=== PATIENT | male | born 1960 | race Caucasian/White ===

== ENCOUNTER → 2017-08-25 15:28 | Outpatient (CLI) | payer OTHER, SELFPAY ==
[2016-08-15 14:08] VITALS: BMI 28.9
--- NOTE | 2017-08-25 16:00 | MRI_ITS ---
STUDY: MRI LUMBAR SPINE WITHOUT CONTRAST REASON FOR EXAM: Male, 57 years old. Low-back pain with radicular symptoms the left leg. Patient had previous surgery in July 2015. TECHNIQUE: Standardized fat and water weighted pulse sequences were obtained in the sagittal and axial planes. COMPARISON: MRI lumbar spine dated January 25, 2015. FINDINGS: T12-L1: Normal endplates. Normal disc height, signal and morphology. Normal bilateral facet joints. Normal central canal and bilateral lateral recesses. Normal bilateral intervertebral neural foramina. There is straightening of the normal lumbar lordosis. There is no substantial scoliosis. Normal conus medullaris that terminates at the L1 level. L1-2: There are irregular endplates. There is abnormal signal at the endplates that suggest sequela chronic Modic changes. There is annular disc bulge and osteophyte complex. Neural foramina are bilaterally narrowed without evidence for nerve impingement. There is mild central acquired canal stenosis. L2-3: There is narrowing of the disc with irregular endplates possibly related to multiple Schmorl's nodes. There is an annular disc bulge and posterior broad central disc protrusion. There is mild degenerative arthropathy of facet joints. Neural foramina are bilaterally narrowed without evidence for nerve impingement. There is no significant central acquired canal stenosis. L3-4: There is abnormal signal at the L4 vertebral body. This has appearance of acute Modic change or bone contusion. This appears to be associated with a Schmorl's node. This is larger than was apparent on the previous study. There is an annular disc bulge and osteophyte complex. There is mild degenerative arthropathy of facet joints. Neural foramina are bilaterally narrowed without evidence for nerve impingement. L4-5: There is an annular disc bulge and osteophyte complex. There is mild degenerative arthropathy of facet joints. There is no significant central acquired canal stenosis. No foramina are narrowed without evidence for nerve impingement. L5-S1: There is narrowing of the disc. There is anterolisthesis at this level with uncovering of the disc. Patient has had surgical fusion at this level with interpedicular screws. There is mild degenerative arthropathy of facet joints. Neural foramina are severely narrowed with probable impingement of bilateral L5 nerve roots at the neural foramina. There is no significant central acquired canal stenosis. Normal visualized sacral ala. Normal visualized paraspinous soft tissue structures. MRI/Spine Lumbar (Routine) IMPRESSION: 1. Moderately severe multilevel degenerative disc disease and degenerative arthropathy of the lumbar spine with acquired canal stenosis, neural foraminal narrowing and potential nerve impingement, as described. 2. Increasing abnormal signal within the L4 vertebral body apparently related to large Schmorl's node. This may be the result of acute discogenic change. 3. Postoperative changes at L5-S1 with persistent grade 1 anterolisthesis. Electronically Signed: Eda Bonilla MD at 19:56 EDT , Service support ,
== END ==
PROVIDERS: Family Provider Student in an Organized Health Care Education/Training Program; PCP Student in an Organized Health Care Education/Training Program
DX: M43.16 Spondylolisthesis, lumbar region (principal)
CPT/HCPCS: 72148

== ENCOUNTER → 2019-01-19 16:26 | Outpatient (CLI) | payer OTHER, SELFPAY ==
[2016-08-15 14:08] VITALS: BMI 28.9
--- NOTE | 2019-01-19 16:35 | MRI_ITS ---
STUDY: MRI LUMBAR SPINE WITHOUT CONTRAST REASON FOR EXAM: Male, 58 years old. Low back and left leg pain. TECHNIQUE: Standardized fat and water weighted pulse sequences were obtained in the sagittal and axial planes. COMPARISON: 08/25/2017 MRI lumbar spine. FINDINGS: No fracture or acute osseous abnormality. Alignment unchanged with grade 1, 3 mm anterolisthesis of L5 on S1. Diffuse disc desiccation with prominent endplate degenerative signal changes and irregularity throughout the lumbar spine particularly at L1-2, L2-3, and L3-4 with a large Schmorl's node in the superior endplate of L4, similar to prior. As before the conus terminates at the level of the mid L1 vertebral body with normal contour and signal. These thecal sac terminates at the mid S2 level. No acute finding in the paraspinal soft tissues. At L1-2, diffuse disc bulge and mild bilateral facet degeneration causes only mild narrowing, similar to prior. At L2-3, diffuse disc bulge and mild bilateral facet degeneration causes only mild narrowing. At L3-4, smaller diffuse disc bulge and moderate bilateral facet degeneration causes only mild narrowing, similar to prior. At L4-5, there is no significant disc bulge. Mild bilateral facet degeneration causes only mild narrowing. At L5-S1, the patient is status post posterior fusion. Mild chronic anterolisthesis of L5 on S1 with unroofing of the disc causes moderate to severe bilateral foraminal narrowing with flattening of the bilateral exiting L5 nerve roots. No significant spinal canal narrowing. This level is also similar to prior. MRI/Spine Lumbar (Routine) IMPRESSION: No significant change compared to 08/25/2017. Moderate to severe bilateral foraminal narrowing at L5-S1 secondary to grade 1 anterolisthesis and unroofing of the disc with mass effect upon the bilateral exiting L5 nerve roots in the foramina. Posterior fusion at this level. Prominent multilevel disc greater than facet degeneration but with no other evidence of nerve root impingement. Electronically Signed: Stuart Welch, at 19:41 EDT Tel , Service support ,
== END ==
PROVIDERS: Family Provider Student in an Organized Health Care Education/Training Program; PCP Student in an Organized Health Care Education/Training Program; Referring Provider Anesthesiology Pain Medicine; Visit Provider Anesthesiology Pain Medicine
DX: M54.9 Dorsalgia, unspecified (principal)
CPT/HCPCS: 72148

== ENCOUNTER 2019-03-07 15:47 | Outpatient (RCR) | payer OTHER, SELFPAY ==
[2016-08-15 14:08] VITALS: BMI 28.9
--- NOTE | 2019-03-09 10:43 | HP.OTFCE_ITS ---
HP OT Functional Capacity Eval Date of Evaluation: 03/07/19 - Task Lift Floor (Occasional 1-33% of Day): 75 Floor (Frequent 34-66% of Day): 38 Floor (Constant 67-100% of Day): 15 Floor PDL: Medium-Heavy Knee (Occasional 1-33% of Day): 50 Knee (Frequent 34-66% of Day): 25 Knee (Constant 67-100% of Day): 10 Knee PDL: Medium Waist (Occasional 1-33% of Day): 45 Waist (Frequent 34-66% of Day): 22 Waist (Constant 67-100% of Day): 9 Waist PDL: Medium Shoulder (Occasional 1-33% of Day): 45 Shoulder (Frequent 34-66% of Day): 22 Shoulder (Constant 67-100% of Day): 9 Shoulder PDL: Medium Overhead (Occasional 1-33% of Day): 25 Overhead (Frequent 34-66% of Day): 12 Overhead (Constant 67-100% of Day): na Overhead PDL: Light - Work Activity/Posture Bending: Frequent Ability (34-66% of day) Comments: low freqent ability Squatting: Occasional Ability (1-33% of day) Kneeling: Frequent Ability (34-66% of day) Comments: with external support Reaching out: Frequent Ability (34-66% of day) Reaching up: Frequent Ability (34-66% of day) Sitting: Frequent Ability (34-66% of day) Walking: Frequent Ability (34-66% of day) Comments: low frequent ability Standing: Frequent Ability (34-66% of day) Comments: while shifting weight on low frequent ability - Reference Duration Sedentary Sedentary Light Light Light Medium Medium Medium Heavy Very Heavy Heavy Occasional (0-33% of day) Frequent (34-66% of day) Constant (67-100% of day) 10 # Negligible Negligible 15 # 8 # Negligible 20 # 10# Negli. 35 # 18 # 7 # 50 # 25 # 10 # 75 # 100 # >100 # 38 # 50 # >50 # 15 # 20 # >20 # - Patient Information Height: 1.75 m Weight:: 93.894 kg Hand Dominance: right - Medical History Medical History Including Restrictions: This 58-year-old male was seen for FCE. Pt states he was in good health until 2008 pt began having back pain. Pt states he did have 2016 fusion for L5-S1 pt states he removed well from this sx. Pt states he started to have pain in 2017. pt has been doing injections and states they are 70% affective. pt states he is working with from [facility] [place] to see for sx options. Pt states he does not exercise on a regular basis. - Diagnoses Diagnoses: HTN dx in 2006. DMII dx in 2005. fx vertebra. Back pain. suffered Heart attack 2017 stent placed - Symptoms Symptoms: Pt states he has sharp left sided low back pain. left leg pain. left buttock pain - Pain Pain: Pt states he is 9/10 pain but arrives following work day for assessment. pt arrives following work has not taken any medication today for his back. states he pain medicine at night - pt states he takes Percocet, gabapentin - Work History Work History: Pt is employed at [employer] for 10 years. Pt states he is standing for 8 hour shifts and is required to lift 2#-70#. 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 Pt states once his part is smooth, he places it on a skid. 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 - Behavioral Behavioral: Pt was cooperative during the assessment. - ADLS ADLS: Pt states he lives with his in a one-story home with no entry steps. pt has ramp entrance. Pt states there is a basement to get tools. Tub shower c ombo- pt states he is independent with shower and dressing. Pt does state his help with his socks at times but not often. Pt drives ind. Pt states he does light cooking, laundry. pt states his does the yard work and most of the shopping. - Physical Examination ROM: Pt does not demo limited ROM at this time. Strength: pt demo with left hip flex at 4/5. quads 4/5. hip adduction/abduction 5/5. UB 5/5 Right Cell Tender Helper Strength Average: 83.33 Right Cell Tender Helper Strength Percentile: 26% Left Cell Tender Helper Strength Average: 105.00 Left Cell Tender Helper Strength Percentile: 80% Right Lateral Pinch Average: 20.00 Right Lateral Pinch Percentile: 50% Left Lateral Pinch Average: 21.33 Left Lateral Pinch Percentile: 75% Right Tripod Pinch Average: 22.00 Right Tripod Pinch Percentile: 90% Left Tripod Pinch Average: 22.66 Left Tripod Pinch Percentile: >90% Sensation: Denies Fine Motor: Denies Balance: no loss of balance noted during the assessment - Non Material Handling Activities Bending: Pt demo the ability to bend forward three times, ten times and ten times and 8 times rapidly- pt reports sharp pain in low back-8/10 pt was holding his breath during task. pt can bend forward on a low frequent ability. Pain limiting factor Squatting: pt demo the ability to squat three times and ten times and ten times rapidly pt in limited squat level ability with use of external support. pt reports pain 8/10 pt can squat on a occasional ability. Kneeling: Pt demo the ability to kneel three times on right knee and then on left knee. ten times on left knee and ten times rapidly- Pt leaned heavily on table top for support. pt reports pain in left back/hip 8/10. pt did complain of right quad cramping. pt can kneel on a frequent ability with external support. Reaching out/up: Pt demo reaching out/up three times, ten times and ten times rapidly while standing pt can reach out/up on Frequent ability. Walking: Pt demo a reciprocal antalgic gait patter for 15 min pt report back pain 9/10 following- he sat for 3 min rocking back and forth to decrease his pain. pt can ambulate on a low frequent ability. Standing: pt demo the ability to stand for 4 min and began shifting weight. pt demo standing for 8 min while shifting weight.pt can stand on a low frequent ability. Sitting: Pt demo the ability to sit for 30 min with shifting body weight. Pt reports pain is 8/10. pt can sit on a frequent ability with shifting weight. Pt indicated on functional activity questionnaire that he can sit in a car for one hour before needing to get out and stretch. Climbing Stairs: pt demo the ability to ascend ten steps with reciprocal step pattern and use of bilateral UE on hand rails. Pt descended ten steps with a right step-down pattern leaning heavily on right side. - Dynamic Occasional Lifting Capacity Floor Lift: pt demo the ability to lift 75# maximally and 45# comfortably from this level. Knee Lift: pt demo the ability to lift 50# maximally and 35# comfortably from this level. Waist Lift: pt demo the ability to lift 45# maximally and 25# comfortably from this level. Shoulder Lift: pt demo the ability to lift 45# maximally and 25# comfortably from this level. Overhead Lift: pt demo the ability to lift 25# maximally and 10# comfortably from this level. Carrying: Pt demo the ability to carry 45# for 30 feet with good ability. Comments: Pts pain and muscle cramp was limiting factor with his ability during this assessment. Pts pain ranged from 6-8/10.
== END 2019-03-07 19:00 | disposition home or self-care (01) ==
LOC: OT 15:47
PROVIDERS: Family Provider Student in an Organized Health Care Education/Training Program; PCP Student in an Organized Health Care Education/Training Program; Referring Provider Anesthesiology Pain Medicine; Visit Provider Anesthesiology Pain Medicine
DX: M54.9 Dorsalgia, unspecified (principal); M79.606 Pain in leg, unspecified
CPT/HCPCS: 97750

== ENCOUNTER → 2020-06-29 11:03 | Outpatient (CLI) | payer OTHER, SELFPAY ==
[2016-08-15 14:08] VITALS: BMI 28.9
--- NOTE | 2020-06-29 11:07 | VDLE_ITS ---
Reason For Study: LLE swelling RIGHT LEFT CFV is compressible, spontaneous, phasic, GSV is normal. competent and demonstrates normal CFV is compressible, spontaneous, phasic, augmentation. competent, and demonstrates normal Procedure augmentation. This is a venous duplex using B-mode, color FV is compressible, spontaneous, phasic, flow and spectral Doppler. competent and demonstrates normal Exam performed in department. augmentation. The exam was diagnostic. POP V is compressible, spontaneous, phasic, A preliminary report was called and/or faxed competent and demonstrates normal to Cathie Scott FASTENER SEWING MACHINE OPERATOR @ [phone] @ augmentation. 11:30 am. T/P Trunk is compressible. PTV is compressible. LT PerV is compressible. Non-vascular structure noted in LT pop fossa area measuring 1.27 x 1.21 cm. Interpretation Summary Deep veins of the left lower extremity are patent and compressible segmentally. There is no evidence of left lower extremity deep vein thrombosis. Valvular competence appears intact within the proximal deep venous system on the left . The left great saphenous vein appears patent and compressible segmentally. A non-vascular, hypoechoic structure is noted in the left popliteal space, measuring 1.27 cm x 1.21 cm. This probably represents a popliteal cyst. Clinical correlation is advised. Ordering Physician: Wendy Scott Referring Physician: Bradley Hills Performed By: Tyra Jeffery, ELEONORACS, RVT
== END ==
LOC: CVS 11:06
PROVIDERS: PCP Student in an Organized Health Care Education/Training Program; Referring Provider Nurse Practitioner Family; Visit Provider Nurse Practitioner Family
DX: M79.89 Other specified soft tissue disorders (principal)
CPT/HCPCS: 93971

== ENCOUNTER 2022-05-13 11:56 | Emergency (ER) | payer BC, SELFPAY ==
[2016-08-15 14:08] VITALS: BMI 28.9
[2022-05-13 11:57] VITALS: BP 163/93; PULSE 84; RESP 16; TEMP 36.4; O2SAT 99; BMI 31.0
--- NOTE | 2022-05-13 12:41 | EX.ED.DYSGE1 ---
HPI History of Present Illness Chief Complaint: Fatigue Informant: patient and spouse/S.O. Narrative Narrative: Patient started with nausea and vomiting and malaise on Thursday. He had just gotten his flu shot on Thursday and felt fine then. Symptoms continued through Thursday. Yesterday and today he is not vomiting anymore but his appetite is still poor. He still feels just dry and weak. He had some abdominal cramping earlier but he has none now. No urinary symptoms. He has no cough or trouble breathing. He had a little bit of nasal drainage. No significant myalgias but some mild soreness. Of note patient is diabetic. [facility] Medical History (Updated 05/13/22 @ 15:[address] Regan Dillon MD) Atherosclerosis of coronary artery of [place] without angina pectoris Diabetes Dyslipidemia Hypertension Non-STEMI (non-ST elevated myocardial infarction) Home Medications insulin glargine 100 unit/mL subcutaneous solution 40 unit SQ QHS DM 02/11/15 [History Last Taken 08/13/16] lisinopril 5 mg tablet 5 mg PO DAILY BP 02/11/15 [History Last Taken 08/14/16] glimepiride 4 mg tablet 4 mg PO DAILY DM 08/14/16 [History Last Taken 08/14/16] metformin 1,000 mg tablet 1,000 mg PO BIDCM 08/14/16 [History Last Taken 08/14/16] atenolol 50 mg-chlorthalidone 25 mg tablet 1 tab PO DAILY BP #30 tabs 08/20/17 [Rx Last Taken Unknown] atorvastatin 40 mg tablet 40 mg PO QHS #30 tabs 08/20/17 [Rx Last Taken Unknown] clopidogrel 75 mg tablet 75 mg PO DAILY #30 tabs 08/20/17 [Rx Last Taken Unknown] gabapentin 300 mg capsule 300 mg PO TID 08/20/17 [History Last Taken Unknown] oxycodone-acetaminophen 5 mg-325 mg tablet (Percocet) 1 tab PO Q4H PRN 08/20/17 [History Last Taken Unknown] empagliflozin 10 mg tablet (Jardiance) mg 05/13/22 [History Last Taken Unknown] furosemide 20 mg tablet mg 05/13/22 [History Last Taken Unknown] ondansetron 4 mg disintegrating tablet 4 mg PO Q8H PRN nausea and vomiting #10 tabs 05/13/22 [Rx Last Taken Unknown] potassium chloride 10 mEq tablet,extended release meq PO 05/13/22 [History Last Taken Unknown] Allergy/AdvReac Type Severity Reaction Status Date / Time exenatide [From [place]] AdvReac Other Verified 05/13/22 12:13 Family History Father CAD (coronary artery disease) Mother CAD (coronary artery disease) Surgical History H/O left knee surgery History of appendectomy History of coronary artery stent placement (~08/15/16) Previous back surgery (~07/25/14) Social History Smoking Status: Never smoker ROS ROS ED Constitutional Constitutional ED: Denies chills, fever(s) or subjective Eyes Eyes: Denies change in vision ENT ENT ED: Reports rhinorrhea; Denies ear pain or sore throat Cardiovascular Cardiovascular: Denies chest pain or palpitations Respiratory/Chest Respiratory/Chest: Denies cough or dyspnea Gastrointestinal Gastrointestinal: Reports nausea and vomiting Genitourinary Genitourinary ED: Denies dysuria, hematuria or urinary frequency Musculoskeletal Musculoskeletal: Reports myalgias; Denies arthralgias, back pain or neck pain Integumentary Denies Abrasions Neurologic Neurologic: Denies weakness Endocrine Endocrinology: Denies polydipsia or polyuria Hematologic/Lymphatic Hematologic/Lymphatic: Denies easy bleeding or easy bruising Allergic/Immunologic Allergic/Immunologic ED: Denies urticaria EXAM Physical Exam Const Vital Signs: 05/13/22 11:57 05/13/22 14:10 Temperature 97.6 F L Temperature Source Temporal Pulse Rate 84 74 Respiratory Rate 16 16 Blood Pressure 163/93 H Blood Pressure Mean 116 Pulse Ox 99 99 Oxygen Delivery Method Room Air Positive well nourished and well developed Constitutional Narrative: Patient awake alert and appropriate. He does not look in distress but he does look like he does not feel too well. General Appearance ED: well developed and NAD; Negative for pallor HEENT Reports dry mucous membranes HEENT Narrative: Mildly dry mucous membranes. Mouth ED: Yes dry mucous membranes Mouth: dry mucous membranes Eyes General Eye ED: Negative for scleral icterus Neck supple Chest Wall inspection of chest normal Resp normal respiratory effort and clear to auscultation bilaterally Auscultation: Negative for rales, rhonchi or wheezes Cardio regular rate, regular rhythm and no murmurs GI normal to inspection, nondistended, normoactive bowel sounds, non-tender, non-distended and no masses Palpation: soft; Negative for tender or guarding Back/Spine no CVA tenderness Extremity normal to inspection General Extremety ED: Negative for edema or tenderness General Extremity: Negative for edema Psych mental status grossly normal Skin no rashes or lesions noted General Skin Exam: Negative for pallor MDM MDM MDM Narrative Medical decision making narrative: Patient CBC shows no acute process. Electrolytes do show a mild bump in his creatinine and BUN over his baseline. BUN to creatinine ratio is also high consistent with some dehydration. Patient is feeling better after IV fluids and Zofran. I think patient can go home. His vomiting actually stopped yesterday and today. He was still feeling a bit weak. Influenza's are negative. We will send him home with Zofran. We discussed reasons to return. Abdomen is still benign on repeat exam. Lab Data Attestation: I reviewed the patient's lab results. Labs: Laboratory Results - last 24 hr 05/13/22 05/13/22 13:00 13:00 WBC 8.6 RBC 5.91 Hgb 16.3 Hct 51.1 MCV 86.5 MCH 27.6 MCHC 31.9 L RDW Std Deviation 42.9 RDW Coeff of [place] 13.5 Plt Count 241 MPV 10.8 Immature Gran % (Auto) 0.400 Neut % (Auto) 75.6 H Lymph % (Auto) 12.0 L [place] % (Auto) 7.5 Eos % (Auto) 3.6 Baso % (Auto) 0.9 Absolute Neuts (auto) 6.5 Absolute Lymphs (auto) 1.03 Nucleated RBC % 0 Sodium 135 L Potassium 4.4 Chloride 101 Carbon Dioxide 24.0 Anion Gap 10 BUN 35 H Creatinine 1.27 Estim Creat Clear Calc 61.85 Est GFR (MDRD) Af Amer 74 Est GFR (MDRD) Non-Af 61 BUN/Creatinine Ratio 27.6 H Glucose 206 H Calcium 9.1 Discharge Plan Triage Chief Complaint: Fatigue ED Provider: Regan Dillon Dx/Rx/DC Orders Clinical Impression: Acute dehydration, Nausea & vomiting, Acute viral syndrome Instructions: Dehydration, ED Diet Vomiting Diarrhea Prescriptions: New ondansetron 4 mg tablet,disintegrating 4 mg PO Q8H PRN (Reason: nausea and vomiting) Qty: 10 0RF No Action atorvastatin 40 MG tablet 40 mg PO QHS Qty: 30 11RF clopidogrel 75 MG tablet 75 mg PO DAILY Qty: 30 11RF atenolol-chlorthalidone 1 EACH tablet 1 tab PO DAILY Qty: 30 11RF gabapentin 300 mg capsule 300 mg PO TID oxycodone-acetaminophen [Percocet] 5-325 mg tablet 1 tab PO Q4H PRN insulin glargine 100 UNIT/ML solution 40 unit SQ QHS Label Comments: diabetes lisinopril 5 MG tablet 5 mg PO DAILY Label Comments: blood pressure glimepiride 4 MG tablet 4 mg PO DAILY metformin 1,000 MG tablet 1,000 mg PO BIDCM potassium chloride 10 mEq tablet extended release PO furosemide 20 mg tablet Jardiance 10 mg tablet Primary Care Provider: Bradley Hills Referrals: Bradley Hills, DO [Primary Care Provider] - 3-5 Days if not improving Disposition Disposition: Home, Self Care
[2022-05-13] MEDS: Ondansetron 4 MG/2 ML Vial IV (13:04)
[2022-05-13] MEDS: 0.9% Normal Saline 1,000 ML 1000 ML IV (13:05)
[2022-05-13 13:08] LABS: Absolute Lymphocyte Count 1.03 X10^3/uL (0.83-4.51); Absolute Neutrophil Count 6.5 X10^3/uL (2.0-7.7); Basophil# 0.08 X10^3/uL; Basophil% 0.9 % (0-1); Eosinophil# 0.31 X10^3/uL; Eosinophils% 3.6 % (0-5); Hematocrit 51.1 % (40-54); Hemoglobin 16.3 g/dL (13.0-16.5); Lymphocyte # 1.03 X10^3/ul (0.83-4.51); Mean Corp Hgb Conc 31.9 g/dL (32-36); Mean Corpuscular Hgb 27.6 pg (27.0-32.0); Mean Corpuscular Volume 86.5 fL (80-94); Mean Platelet Vol. 10.8 fl (6.2-12.0); Monocyte# 0.64 X10^3/uL; Monocyte% 7.5 % (0-10); NRBC Flagged by Analyzer 0 % (0-5); Neutrophil # 6.47 X10^3/uL (2.7-7.7); Neutrophil % 75.6 % (47-70); Platelet Count 241 K/mm3 (150-450); RBC Distribution Width CV 13.5 % (11.6-14.6); RBC Distribution Width SD 42.9 fl (35.1-43.9); Red Blood Count 5.91 M/mm3 (4.6-6.2); White Blood Count 8.6 K/mm3 (4.4-11.0)
[2022-05-13 13:21] LABS: Anion Gap 10 (5-15); BUN 35 mg/dL (7-18); BUN/Creat Ratio 27.6 RATIO (10-20); Calcium,Total 9.1 mg/dL (8.5-10.1); Chloride 101 mmol/L (98-107); Creatinine, Serum 1.27 mg/dL (0.70-1.30); EST Glomerular Filtration Rate 61 mL/min (>60); Est Glom Filt Rate - Afr Amer 74 mL/min (>60); Estimated Creatinine Clearance 61.85 ml/min; Glucose 206 mg/dL (74-106); Potassium 4.4 mmol/L (3.5-5.1); Sodium Level 135 mmol/L (136-145)
[2022-05-13 14:10] VITALS: PULSE 74; RESP 16; O2SAT 99
== END 2022-05-13 15:21 | disposition home or self-care (01) ==
PROVIDERS: Emergency Provider Emergency Medicine; PCP Student in an Organized Health Care Education/Training Program; Visit Provider Emergency Medicine
DX: E86.0 Dehydration (principal); R11.2 Nausea with vomiting, unspecified; B34.9 Viral infection, unspecified; I25.10 Atherosclerotic heart disease of native coronary artery without angina pectoris; I25.2 Old myocardial infarction
CPT/HCPCS: 80048; 85025; 87804; 96361; 96374; 99283; J7030; J2405

== ENCOUNTER 2023-09-10 13:08 | Observation (INO) | payer BC, SELFPAY ==
[2016-08-15 14:08] VITALS: BMI 28.9
[2023-09-10 13:09] VITALS: BP 153/84; PULSE 99; RESP 18; TEMP 36; O2SAT 98; BMI 31.8
[2023-09-10 13:40] LABS: Absolute Lymphocyte Count 0.62 X10^3/uL (0.83-4.51); Absolute Neutrophil Count 10.1 X10^3/uL (2.0-7.7); Basophil# 0.05 X10^3/uL; Basophil% 0.4 % (0-1); Eosinophil# 0.04 X10^3/uL; Eosinophils% 0.4 % (0-5); Hematocrit 43.6 % (40-54); Hemoglobin 13.8 g/dL (13.0-16.5); Lymphocyte # 0.62 X10^3/ul (0.83-4.51); Lymphocyte % 5.5 % (19-41); Mean Corp Hgb Conc 31.7 g/dL (32-36); Mean Corpuscular Hgb 27.3 pg (27.0-32.0); Mean Corpuscular Volume 86.2 fL (80-94); Mean Platelet Vol. 9.5 fl (6.2-12.0); Monocyte# 0.48 X10^3/uL; Monocyte% 4.2 % (0-10); NRBC Flagged by Analyzer 0 % (0-5); Neutrophil # 10.11 X10^3/uL (2.7-7.7); Neutrophil % 89.1 % (47-70); Platelet Count 479 K/mm3 (150-450); RBC Distribution Width CV 14.6 % (11.6-14.6); RBC Distribution Width SD 45.9 fl (35.1-43.9); Red Blood Count 5.06 M/mm3 (4.6-6.2); White Blood Count 11.4 K/mm3 (4.4-11.0)
[2023-09-10] MEDS: Ondansetron 4 MG/2 ML Vial IV ×2 (13:46→17:21)
[2023-09-10] MEDS: 0.9% Normal Saline (1000mL) 1,000 ML 1000 ML IV ×2 (13:46→15:19)
[2023-09-10] MEDS: Morphine 4 MG/ML Syringe IV (13:47)
[2023-09-10 14:01] LABS: ALB/GLOB Ratio 0.8 RATIO (0.9-2.4); AST(SGOT) 34 U/L (15-37); Alanine Aminotransfer ALT/SGPT 60 U/L (16-61); Albumin, Serum 3.8 g/dL (3.2-5.0); Alkaline Phosphatase 143 U/L (45-117); Anion Gap 15 (5-15); BUN 27 mg/dL (7-18); BUN/Creat Ratio 23.5 RATIO (10-20); Calcium,Total 9.7 mg/dL (8.5-10.1); Chloride 103 mmol/L (98-107); Creatinine, Serum 1.15 mg/dL (0.70-1.30); EST Glomerular Filtration Rate 69 mL/min (>60); Est Glom Filt Rate - Afr Amer 83 mL/min (>60); Estimated Creatinine Clearance 76.81 ml/min; Glucose 210 mg/dL (74-106); Lipase 25 U/L (13-75); Potassium 4.6 mmol/L (3.5-5.1); Protein, Total 8.8 g/dL (6.4-8.2); Sodium Level 135 mmol/L (136-145)
--- NOTE | 2023-09-10 14:17 | EDS_ITS ---
HPI HPI - GI History of Present Illness Chief Complaint: Nausea/Vomiting Informant: patient Abdominal Pain/Flank Pain Onset: Yesterday Context: Gradual Onset Timing: Continuous Quality: Cramping Location: Diffuse Worsened by: Nothing Relieved by: - (Vomiting) Nausea/Vomiting/Emesis GI Symptom: Positive for Nausea and Vomiting Onset: Yesterday Quality: Positive for Nonbilious; Negative for Blood streaks, Coffee ground or Hematemesis Diarrhea/Melena/Hematochezia GI Symptom: Negative for Diarrhea or Melena Associated Symptoms Associated Symptoms: Negative for Dysuria, Frequency or Hematuria Narrative Narrative: Patient presents with abdominal pain that began yesterday. Patient states it has gradually gotten worse. Patient states it has been intermittent. Patient describes it as cramping. Patient states it is diffuse across his abdomen. P atient states it gets better after he vomits. Patient states he has been having several episodes of nausea and vomiting. Patient denies any hematemesis or coffee-ground emesis. Patient denies any diarrhea, melena, or hematochezia. Patient denies any dysuria, frequency, or hematuria. Patient denies any fevers or chills. [facility] Medical History Atherosclerosis of coronary artery of [place] heart without angina pectoris Diabetes Dyslipidemia Hypertension Non-STEMI (non-ST elevated myocardial infarction) Home Medications insulin glargine 100 unit/mL subcutaneous solution 68 unit subcut QHS DIABETES 02/11/15 [History Last Taken 09/08/23] lisinopril 5 mg tablet 5 mg PO DAILY BP 02/11/15 [History Last Taken 09/10/23] clopidogrel 75 mg tablet 75 mg PO DAILY #30 tabs 08/20/17 [Rx Last Taken 09/10/23] gabapentin 300 mg capsule 300 mg PO TID 08/20/17 [History Last Taken 09/10/23] oxycodone-acetaminophen 5 mg-325 mg tablet (Percocet) 1 - 2 tab PO Q4H PRN pain 08/20/17 [History Last Taken 09/10/23] furosemide 20 mg tablet 20 mg PO BID PRN LEG SWELLING 05/13/22 [History Last Taken 09/10/23] ondansetron 4 mg disintegrating tablet 4 mg PO Q8H PRN nausea and vomiting #10 tabs 05/13/22 [Rx Last Taken 09/10/23] potassium chloride 10 mEq tablet,extended release 20 meq PO DAILY 05/13/22 [History Last Taken 09/10/23] ascorbic acid (vitamin C) 500 mg tablet 1 g PO BID 09/10/23 [History Last Taken 09/10/23] aspirin 81 mg chewable tablet (Aspirin Childrens) 81 mg PO BID 09/10/23 [History Last Taken 09/10/23] atenolol 50 mg tablet 50 mg PO DAILY 09/10/23 [History Last Taken 09/10/23] empagliflozin 25 mg tablet (Jardiance) 25 mg PO DAILY DIABETES 09/10/23 [History Last Taken 09/10/23] melatonin 10 mg tablet 60 mg PO QHS SLEEP 09/10/23 [History Last Taken 09/08/23] metformin 500 mg tablet 1,000 mg PO BIDCM DIABETES 09/10/23 [History Last Taken 09/10/23] simvastatin 40 mg tablet 40 mg PO QHS 09/10/23 [History Last Taken 09/09/23] triamcinolone acetonide 0.5 % topical cream 1 applic topical BID PRN RASH/IT KAIDEN 09/10/23 [History Last Taken Unknown] Allergy/AdvReac Type Severity Reaction Status Date / Time exenatide [From [place]] AdvReac Other Verified 09/10/23 13:09 Family History Father CAD (coronary artery disease) Mother CAD (coronary artery disease) Surgical History H/O left knee surgery History of appendectomy History of coronary artery stent placement (~08/15/16) Previous back surgery (~07/25/14) Social History Smoking Status: Never smoker ROS ROS ED Constitutional Constitutional ED: Denies chills or fever(s) Eyes Eyes: Denies blurry vision or change in vision ENT ENT ED: Denies rhinorrhea or sore throat Cardiovascular Cardiovascular: Denies chest pain or palpitations Respiratory/Chest Respiratory/Chest: Denies cough or dyspnea Gastrointestinal Gastrointestinal: Reports abdominal pain, nausea and vomiting; Denies diarrhea or melena Genitourinary Genitourinary ED: Denies dysuria or hematuria Musculoskeletal Musculoskeletal: Denies back pain or neck pain Integumentary Reports rash; Denies abscess Neurologic Neurologic: Denies headache(s) or weakness Allergic/Immunologic Allergic/Immunologic ED: Denies mouth swelling or urticaria EXAM Physical Exam Const Vital Signs: 09/10/23 13:09 09/10/23 15:08 09/10/23 17:00 Temperature 96.8 F L Temperature Source Temporal Pulse Rate 99 78 89 Respiratory Rate 18 16 16 Blood Pressure 153/84 H 172/76 H 181/76 H Blood Pressure Mean 107 108 111 Pulse Ox 98 98 96 Oxygen Delivery Method Room Air Room Air Room Air 09/10/23 17:23 Temperature 97.6 F L Temperature Source Pulse Rate 106 H Respiratory Rate 16 Blood Pressure 181/76 H Blood Pressure Mean 111 Pulse Ox 96 Oxygen Delivery Method Positive well nourished and well developed General Appearance ED: well developed and NAD HEENT Reports moist mucous membranes Neck supple and no JVD Resp normal respiratory effort and clear to auscultation bilaterally Cardio regular rate and regular rhythm GI non-distended Palpation: soft and tender epigastric, LLQ, RLQ, LUQ, RUQ, periumbilical and suprapubic; Negative for guarding or rebound tenderness present Neuro CN's II-XII intact bilaterally, moves all extremities and no sensory deficits noted Sensorium / Orientation: alert Motor Exam: strength 5/5 throughout Psych mental status grossly normal MDM MDM MDM Narrative Medical decision making narrative: Differential diagnosis includes gastritis, pancreatitis, cholecystitis, cholelithiasis, gastroenteritis, dehydration, and electrolyte abnormality. CBC will be obtained to assess for leukocytosis and anemia. Comprehensive metabolic profile will be obtained to assess for hepatic function, renal function, and electrolyte abnormality. Lipase will be obtained to assess for pancreatitis. Lab Data Attestation: I reviewed the patient's lab results. Lab results narrative: CBC was reviewed. There is a slight leukocytosis of 11.4. The remainder is within normal limits. Comprehensive metabolic profile was reviewed. Glucose was slightly elevated at 210. CO2 was slightly low at 17 and anion gap was 15. Lipase was reviewed and was normal at 25. Serum acetone was reviewed and was moderate. Venous blood gas was reviewed. pH was 7.32, pCO2 was 29.7, pO2 was 41.9, bicarb was 15.4, and O2 saturation was 74.5%. Labs: Laboratory Results - last 24 hr 09/10/23 09/10/23 13:32 15:15 WBC 11.4 H RBC 5.06 Hgb 13.8 Hct 43.6 MCV 86.2 MCH 27.3 MCHC 31.7 L RDW Std Deviation 45.9 H RDW Coeff of [place] 14.6 Plt Count 479 H MPV 9.5 Immature Gran % (Auto) 0.400 Neut % (Auto) 89.1 H Lymph % (Auto) 5.5 L [place] % (Auto) 4.2 Eos % (Auto) 0.4 Baso % (Auto) 0.4 Absolute Neuts (auto) 10.1 H Absolute Lymphs (auto) 0.62 L Nucleated RBC % 0 Sodium 135 L Potassium 4.6 Chloride 103 Carbon Dioxide 17.0 L Anion Gap 15 BUN 27 H Creatinine 1.15 Estim Creat Clear Calc 76.81 Est GFR (MDRD) Af Amer 83 Est GFR (MDRD) Non-Af 69 BUN/Creatinine Ratio 23.5 H Glucose 210 H Calcium 9.7 Total Bilirubin 0.90 AST 34 ALT 60 Alkaline Phosphatase 143 H Total Protein 8.8 H Albumin 3.8 Globulin 5.0 H Albumin/Globulin Ratio 0.8 L Lipase 25 Acetone Level MODERATE H ABG Data ABG results: ABG 09/10/23 16:22 Specimen Type NAV Sample Site Not entered VBG pH 7.32 VBG pO2 42 H VBG HCO3 15 L VBG Total CO2 16 L VBG O2 Sat (Calc) 75 H VBG Base Excess -11 L POC Mix VBG pCO2 Pt Tmp 29.7 L O2 Delivery Device Not entered Additional Tests and Interventions Additional Tests or Interventions: Because of the low CO2 and borderline anion gap, serum acetone was obtained. Treatment and Re-Evaluation :: Patient was given IV fluids, morphine, and Zofran. Patient states he was starting to feel better on reevaluation. Patient was advised of his findings. Patient was advised of the need for hospitalization. Patient was agreeable with this. Case was discussed with the hospitalist. He will come in and evaluate the patient. He will determine the disposition at that time. Hospitalist evaluated the patient and will admit the patient to general medical floor for gastroenteritis. Discharge Plan Dx/Rx/DC Orders Clinical Impression: Diabetic ketoacidosis, Nausea and vomiting Disposition Disposition: Acute Care Hospital [facility]
[2023-09-10 15:08] VITALS: BP 172/76; PULSE 78; RESP 16; O2SAT 98
[2023-09-10 16:29] LABS: Blood Gas Specimen Type VEN; O2 Delivery Device Not entered; SITE Not entered; VBG BASE EXCESS -11 mmol/L (-1.0-3.5); VBG Bicarbonate 15 mmol/L (22-26); VBG PO2 42 mmHg (25-40); VBG SO2 75 % (50-70); VBG TCO2 16 mmol/L (23-33); VBG pCO2 29.7 mmHg (41-51); VBG pH 7.32 (7.32-7.42)
[2023-09-10 17:00] VITALS: BP 181/76; PULSE 89; RESP 16; O2SAT 96
--- NOTE | 2023-09-10 17:19 | HP.PCM.HOS_ITS ---
HPI - General General Date of Service: 09/10/23 Chief Complaint: Nausea and vomiting HPI Narrative ARACELY DOMÍNGUEZ, is a 63 M who presents as with nausea and vomiting. Symptoms began last night. Unable to keep anything down. Did not take his insulin last night so presented to the emergency room. Glucose was noted to be 210 and did have low cardiac side on his BNP of 17 and his acetones were positive. Concern was the patient was developing DKA. Patient is known type II diabetic who does take insulin but is also on oral agents as well is never had DKA before. I informed the emergency room physician would find it unlikely the patient is actually going through DKA. [facility] Medical History Atherosclerosis of coronary artery of [place] heart without angina pectoris Diabetes Dyslipidemia Hypertension Non-STEMI (non-ST elevated myocardial infarction) Home Medications insulin glargine 100 unit/mL subcutaneous solution 68 unit subcut QHS DIABETES 02/11/15 [History Last Taken 09/08/23] lisinopril 5 mg tablet 5 mg PO DAILY BP 02/11/15 [History Last Taken 09/10/23] clopidogrel 75 mg tablet 75 mg PO DAILY #30 tabs 08/20/17 [Rx Last Taken 09/10/23] gabapentin 300 mg capsule 300 mg PO TID 08/20/17 [History Last Taken 09/10/23] oxycodone-acetaminophen 5 mg-325 mg tablet (Percocet) 1 - 2 tab PO Q4H PRN pain 08/20/17 [History Last Taken 09/10/23] furosemide 20 mg tablet 20 mg PO BID PRN LEG SWELLING 05/13/22 [History Last Taken 09/10/23] ondansetron 4 mg disintegrating tablet 4 mg PO Q8H PRN nausea and vomiting #10 tabs 05/13/22 [Rx Last Taken 09/10/23] potassium chloride 10 mEq tablet,extended release 20 meq PO DAILY 05/13/22 [History Last Taken 09/10/23] ascorbic acid (vitamin C) 500 mg tablet 1 g PO BID 09/10/23 [History Last Taken 09/10/23] aspirin 81 mg chewable tablet (Aspirin Childrens) 81 mg PO BID 09/10/23 [History Last Taken 09/10/23] atenolol 50 mg tablet 50 mg PO DAILY 09/10/23 [History Last Taken 09/10/23] empagliflozin 25 mg tablet (Jardiance) 25 mg PO DAILY DIABETES 09/10/23 [History Last Taken 09/10/23] melatonin 10 mg tablet 60 mg PO QHS SLEEP 09/10/23 [History Last Taken 09/08/23] metformin 500 mg tablet 1,000 mg PO BIDCM DIABETES 09/10/23 [History Last Taken 09/10/23] simvastatin 40 mg tablet 40 mg PO QHS 09/10/23 [History Last Taken 09/09/23] triamcinolone acetonide 0.5 % topical cream 1 applic topical BID PRN RASH/ITCHING 09/10/23 [History Last Taken Unknown] Allergy/AdvReac Type Severity Reaction Status Date / Time exenatide [From [place]] AdvReac Other Verified 09/10/23 13:09 Family History Father CAD (coronary artery disease) Mother CAD (coronary artery disease) Surgical History H/O left knee surgery History of appendectomy History of coronary artery stent placement (~08/15/16) Previous back surgery (~07/25/14) Social History Smoking Status: Never smoker ROS SARAH Ragland Did have a recent left knee replacement. Has been compensating due to his knee replacement and so has more back pain than he did previously. No fever or chills. All review of systems were negative except as mentioned above in the history of present illness and the other review of systems. Vital Signs Vital Signs Vital Signs: 09/10/23 13:09 09/10/23 15:08 09/10/23 17:00 Temperature 36.0 C L Temperature Source Temporal Pulse Rate 99 78 89 Respiratory Rate 18 16 16 Blood Pressure 153/84 H 172/76 H 181/76 H Blood Pressure Mean 107 108 111 Pulse Ox 98 98 96 Oxygen Delivery Method Room Air Room Air Room Air Weight Weight: 97.795 kg Body Mass Index (BMI) 31.8 Physical Exam Const alert and no apparent distress HEENT normocephalic and head/scalp atraumatic Resp normal respiratory effort, no retractions, no use of accessory muscles and clear to auscultation bilaterally Cardio regular rate, regular rhythm, S1 normal heart sound and S2 normal heart sound GI normal to inspection, nondistended, normoactive bowel sounds, soft to palpation, non-tender and non-distended Extremity normal to inspection and no clubbing, cyanosis or edema Results Lab / Micro Data 09/10/23 13:32 09/10/23 13:32 Labs: Laboratory Results - last 24 hr 09/10/23 13:32: WBC 11.4 H, RBC 5.06, Hgb 13.8, Hct 43.6, MCV 86.2, MCH 27.3, MCHC 31.7 L, RDW Std Deviation 45.9 H, RDW Coeff of [place] 14.6, Plt Count 479 H, MPV 9.5, Immature Gran % (Auto) 0.400, Neut % (Auto) 89.1 H, Lymph % (Auto) 5.5 L, [place] % (Auto) 4.2, Eos % (Auto) 0.4, Baso % (Auto) 0.4, Absolute Neuts (auto) 10.1 H, Absolute Lymphs (auto) 0.62 L, Nucleated RBC % 0, Sodium 135 L, Potassium 4.6, Chloride 103, Carbon Dioxide 17.0 L, Anion Gap 15, BUN 27 H, Creatinine 1.15, Estim Creat Clear Calc 76.81, Est GFR (MDRD) Af Amer 83, Est GFR (MDRD) Non-Af 69, BUN/Creatinine Ratio 23.5 H, Glucose 210 H, Calcium 9.7, Total Bilirubin 0.90, AST 34, ALT 60, Alkaline Phosphatase 143 H, Total Protein 8.8 H, Albumin 3.8, Globulin 5.0 H, Albumin/Globulin Ratio 0.8 L, Lipase 25 09/10/23 15:15: Acetone Level MODERATE H ABG Data ABG results: ABG 09/10/23 16:22 Specimen Type NAV Sample Site Not entered VBG pH 7.32 VBG pO2 42 H VBG HCO3 15 L VBG Total CO2 16 L VBG O2 Sat (Calc) 75 H VBG Base Excess -11 L POC Mix VBG pCO2 Pt Tmp 29.7 L O2 Delivery Device Not entered Assessment & Plan Assessment/Plan (1) Nausea and vomiting: PLAN: Plan Gastroenteritis * I feel this explains his nausea and vomiting. I do not feel the patient is going through DKA. * Exam is benign. * Supportive management with IV fluids and antiemetics * Clear diet advance as tolerated Positive acetones * As above, I do not feel the patient is going to DKA * Is prior component of starvation ketosis as well as the nausea vomiting's been having for roughly the past 24 hours. * Supportive management with IV fluids. Type II diabetic * Hold his oral hypoglycemics. Patient did not take his 60 units of glargine last night and his sugar was only 210. Therefore, I do not feel the patient is going to DKA. * Will resume his glargine but a lower dose until he can eat adequately. VTE prophylaxis with enoxaparin Disposition: Determined. Depends the patient's course. Patient will be on IV fluids and antiemetics. Is unclear if patient will be ready for discharge on the of he would require longer. Case discussed with his at bedside. Charges/Coding Visit Charges Inpatient E&M: 36330 Init Hosp L3
[2023-09-10 17:23] VITALS: BP 181/76; PULSE 106; RESP 16; TEMP 36.4; O2SAT 96
[2023-09-10 18:25] VITALS: BMI 28.5
[2023-09-10 18:33] VITALS: BP 154/54; PULSE 109; RESP 20; TEMP 37.6; O2SAT 98
[2023-09-10] MEDS: 0.9% Saline Lock 10 ML Syringe IV (19:00)
[2023-09-10] MEDS: 0.9% Normal Saline (1000mL) 1,000 ML 150 ML IV (19:00)
[2023-09-10] MEDS: Insulin Glargine-YFGN 100 UNIT/ML Pen 20 UNIT SC (19:55)
[2023-09-10] MEDS: Oxycodone/Apap 5/325 Tablet PO (19:56)
[2023-09-10] MEDS: MELATONIN 10 MG TABLET PO (19:59)
[2023-09-10] MEDS: Gabapentin 300 MG Capsule PO (20:03)
[2023-09-10 20:50] LABS: Bedside Glucose 148 mg/dL (74-106)
[2023-09-11] MEDS: Oxycodone/Apap 5/325 Tablet PO ×3 (00:05→09:54)
[2023-09-11] MEDS: 0.9% Normal Saline (1000mL) 1,000 ML 150 ML IV ×2 (01:27→06:42)
[2023-09-11 04:00] VITALS: BP 163/91; PULSE 102; RESP 18; TEMP 36.8; O2SAT 100
[2023-09-11] MEDS: Gabapentin 300 MG Capsule PO (05:10)
[2023-09-11 05:35] LABS: Bedside Glucose 110 mg/dL (74-106)
[2023-09-11 07:55] LABS: Absolute Lymphocyte Count 0.89 X10^3/uL (0.83-4.51); Absolute Neutrophil Count 5.6 X10^3/uL (2.0-7.7); Basophil# 0.06 X10^3/uL; Basophil% 0.8 % (0-1); Eosinophil# 0.24 X10^3/uL; Eosinophils% 3.2 % (0-5); Hematocrit 36.3 % (40-54); Hemoglobin 11.2 g/dL (13.0-16.5); Lymphocyte # 0.89 X10^3/ul (0.83-4.51); Lymphocyte % 11.9 % (19-41); Mean Corp Hgb Conc 30.9 g/dL (32-36); Mean Corpuscular Hgb 26.9 pg (27.0-32.0); Mean Corpuscular Volume 87.3 fL (80-94); Mean Platelet Vol. 9.8 fl (6.2-12.0); Monocyte# 0.62 X10^3/uL; Monocyte% 8.3 % (0-10); NRBC Flagged by Analyzer 0 % (0-5); Neutrophil # 5.64 X10^3/uL (2.7-7.7); Neutrophil % 75.3 % (47-70); Platelet Count 433 K/mm3 (150-450); RBC Distribution Width CV 14.9 % (11.6-14.6); RBC Distribution Width SD 47.8 fl (35.1-43.9); Red Blood Count 4.16 M/mm3 (4.6-6.2); White Blood Count 7.5 K/mm3 (4.4-11.0)
[2023-09-11 08:12] VITALS: BP 129/69; PULSE 89; RESP 18; TEMP 37; O2SAT 96
[2023-09-11 08:17] LABS: ALB/GLOB Ratio 0.8 RATIO (0.9-2.4); AST(SGOT) 18 U/L (15-37); Alanine Aminotransfer ALT/SGPT 37 U/L (16-61); Alkaline Phosphatase 107 U/L (45-117); Anion Gap 8 (5-15); BUN 23 mg/dL (7-18); BUN/Creat Ratio 23.3 RATIO (10-20); Calcium,Total 8.4 mg/dL (8.5-10.1); Chloride 111 mmol/L (98-107); Creatinine, Serum 0.99 mg/dL (0.70-1.30); EST Glomerular Filtration Rate 82 mL/min (>60); Est Glom Filt Rate - Afr Amer 99 mL/min (>60); Estimated Creatinine Clearance 84.75 ml/min; Glucose 128 mg/dL (74-106); Potassium 3.9 mmol/L (3.5-5.1); Sodium Level 138 mmol/L (136-145)
[2023-09-11] MEDS: Aspirin 81 MG TAB.CHEW PO (08:24)
[2023-09-11] MEDS: Empagliflozin 25 MG Tablet PO (09:55)
[2023-09-11] MEDS: Clopidogrel Bisulfate 75 MG Tablet PO (09:55)
[2023-09-11] MEDS: Lisinopril 5 MG Tablet PO (09:55)
[2023-09-11] MEDS: Atenolol 50 MG Tablet PO (09:55)
[2023-09-11] MEDS: Enoxaparin 40 MG/0.4 ML Syringe SC (09:56)
[2023-09-11] MEDS: Insulin Lispro 100 UNIT/ML INSULN.PEN SC (12:01)
--- NOTE | 2023-09-11 12:06 | DCINST_ITS ---
Discharge Instructions Diet Discharge Diet: Low fat / Low cholesterol and Carb Control Diet Activity Discharge Activity: Return to Normal Activity Dressing / Incision Call your doctor if you observe: Fever of 101 or Higher, Shortness of breath, Dizziness, Fainting spells, Swelling in the ankles, Chest pain and Increased palpitations (irregular heartbeat) Follow Up Care Test Results: Test results from this visit will be discussed in further detail at your follow- up appointment, if applicable. Discharge Plan Admission Admit Date/Time: 09/10/23 17:12 Attending Provider: Larry Coley Primary Care Provider: Bradley Hills Consulting Providers: Brandin Ca Instructions Additional Instructions / Restrictions: Adjust your long-acting insulin at night based on your blood sugars during the day given that you are likely not can to be eating like you normally do given your recent episodes with nausea and vomiting as your blood sugars start to increase slowly return back to your baseline long-acting insulin. Discharge Orders/Prescriptions Prescriptions: Continued clopidogrel 75 MG tablet 75 mg PO DAILY Qty: 30 11RF gabapentin 300 mg capsule 300 mg PO TID oxycodone-acetaminophen [Percocet] 5-325 mg tablet 1 - 2 tab PO Q4H PRN (Reason: pain) insulin glargine 100 UNIT/ML solution 68 unit subcut QHS lisinopril 5 MG tablet 5 mg PO DAILY Patient Comments: blood pressure potassium chloride 10 mEq tablet extended release 20 meq PO DAILY Rx Instructions: TAKE WITH BREAKFAST ondansetron 4 mg tablet,disintegrating 4 mg PO Q8H PRN (Reason: nausea and vomiting) Qty: 10 0RF metformin 500 mg tablet 1,000 mg PO BIDCM Jardiance 25 mg tablet 25 mg PO DAILY atenolol 50 mg tablet 50 mg PO DAILY simvastatin 40 mg tablet 40 mg PO QHS aspirin [Aspirin Childrens] 81 mg tablet,chewable 81 mg PO BID ascorbic acid (vitamin C) 500 mg tablet 1 g PO BID triamcinolone acetonide 0.5 % cream 1 applic topical BID PRN (Reason: RASH/ITCHING) melatonin 10 mg tablet 60 mg PO QHS Patient Comments: PT STATES HE HAS TO GET UP AT 3AM, SO HE HAS TO TAKE MELATONIN TO GET TO SLEEP EARLY Held furosemide 20 mg tablet 20 mg PO BID PRN (Reason: LEG SWELLING) Hold Instructions: Resume on 09/13/23. Referrals / Follow Up: Bradley Hills DO [Primary Care Provider] - Within 1 Week Disposition Disposition (needs filled in before D/C Order can be placed): Home, Self Care
[2023-09-11 12:41] LABS: Bedside Glucose 157 mg/dL (74-106)
[2023-09-11 12:59] VITALS: BP 139/64; PULSE 74; RESP 18; TEMP 36.7; O2SAT 100
--- NOTE | 2023-09-11 13:27 | CASEMGMT ---
PRATIBHA MARINA Assessment: Face to Face with pt for initial transition planning/care coordination assessment. PRATIBHA MARINA introduced self and role at [facility], pt voices understanding and consents to assessment. Pt is A&O x4 and answers all questions appropriately at this time. Pt sitting up in bed with at bedside. Care providers, pharmacy, and demographics verified/updated. Admitting Dx: gastroenteritis PCP:Reinier Specialists:lizzy Mccoy Pharmacy: [facility] Insurance: [employer] Prescription Benefit: yes LNOK: Carol Sinclair, ; Chalino Sinclair, son Living Arrangements: Pt lives with in a single story home with 2 steps to enter. Pt reports being I in ADL's and denies concerns at home. Transportation: Pt provides transportation as pt just had his knee replaced 2 wks ago. DME:FWW, crutches, walking stick, CGM with sufficient supplies, insulin needles and insulin HHC/SNF: Pt is active with [facility] for PT. Denies hx SNF's. Pt states no concerns with going home at time of dc. He would like [facility] to resume and denies need for a list of other agencies for options. DC it administrative assistant to send referral to [facility]. Pt states no further concerns/needs. CM to follow. Advised pt to ask CM if any further question/concerns/needs arise, voices understanding. Pt Goal: Home with [facility] resumption Plan: Home with [facility] resumption Leola MCKINNON CM
--- NOTE | 2023-09-11 14:02 | CHAPLAIN ---
Type of Pastoral Visit _x__ Initial Visit ___ Follow-up Visit ___ On-call Visit ___ General Patient Visit ___ Spiritual Assessment ___ Family Conference ___ Bereavement ___ Rapid Response ___ Code Blue ___ Other (describe below) Pastoral Care Referral From _x__ Patient ___ Family ___ Nurse ___ Physician ___ Lace Stripper ___ [employer] ___ Other (describe below) Sacrament/Intervention _x__ Active listening ___ Anointing ___ Voodoo ___ Bereavement ___ Communion ___ Tiffani exploration ___ ___ Life review _x__ Prayer ___ Reconciliation ___ Sacrament of Sick ___ Supportive presence ___ Wedding ___ Other (describe below) Pastoral Comments patient and spouse in the room; pt says that things have improved, gave some background, and stated if i can keep my lunch down I'll be going home; both welcome the prayer support and presence but no further needs to address
--- NOTE | 2023-09-11 15:09 | CASEMGMT ---
Discharge Planning Resumption referral and discharge instructions sent to [facility] via [facility]. Agnes Vitale, Discharge Planning Asst.
--- NOTE | 2023-09-11 16:54 | DS.PCM_ITS ---
Providers Date of Admission: 09/10/23 Primary Care Physician: Dr. Bradley Hills, DO Reason For Visit: GASTROENTERITIS Diagnosis Discharge Diagnosis (1) Nausea and vomiting: Status: Acute Code(s): R11.2 - Nausea with vomiting, unspecified Medications at Discharge Home Medications insulin glargine 100 unit/mL subcutaneous solution 68 unit subcut QHS DIABETES 02/11/15 lisinopril 5 mg tablet 5 mg PO DAILY BP 02/11/15 clopidogrel 75 mg tablet 75 mg PO DAILY #30 tabs 08/20/17 gabapentin 300 mg capsule 300 mg PO TID 08/20/17 oxycodone-acetaminophen 5 mg-325 mg tablet (Percocet) 1 - 2 tab PO Q4H PRN pain 08/20/17 furosemide 20 mg tablet 20 mg PO BID PRN LEG SWELLING 05/13/22 ondansetron 4 mg disintegrating tablet 4 mg PO Q8H PRN nausea and vomiting #10 tabs 05/13/22 potassium chloride 10 mEq tablet,extended release 20 meq PO DAILY 05/13/22 ascorbic acid (vitamin C) 500 mg tablet 1 g PO BID 09/10/23 aspirin 81 mg chewable tablet (Aspirin Childrens) 81 mg PO BID 09/10/23 atenolol 50 mg tablet 50 mg PO DAILY 09/10/23 empagliflozin 25 mg tablet (Jardiance) 25 mg PO DAILY DIABETES 09/10/23 melatonin 10 mg tablet 60 mg PO QHS SLEEP 09/10/23 metformin 500 mg tablet 1,000 mg PO BIDCM DIABETES 09/10/23 simvastatin 40 mg tablet 40 mg PO QHS 09/10/23 triamcinolone acetonide 0.5 % topical cream 1 applic topical BID PRN RASH/ITCHING 09/10/23 Hospital Course Operations None Procedures None Summary of Care Provided Minutes Spent on Discharge: 35 Hospital Course: Per HPI: ARACELY DOMÍNGUEZ, is a 63 M who presents as with nausea and vomiting. Symptoms began last night. Unable to keep anything down. Did not take his insulin last night so presented to the emergency room. Glucose was noted to be 210 and did have low cardiac side on his BNP of 17 and his acetones were positive. Concern was the patient was developing DKA. Patient is known type II diabetic who does take insulin but is also on oral agents as well is never had DKA before. I informed the emergency room physician would find it unlikely the patient is actually going through DKA. Hospital Course: 1. Gastroenteritis?63-year-old male present to the hospital with nausea, vomiting, and diarrhea. He was struggling with being able to keep anything down and he would try to take sips of water which would just come right back up. In the ER he was found to have a slightly elevated blood sugar 210 and moderate a cetones. He is a type I diabetic and is on combination of insulin as well as oral medications. He was started on IV fluids and antiemetics and today was able to tolerate both breakfast and lunch without difficulty. I discussed with him that with his lab work returning to normal that he could potentially be discharged home, he expressed understanding of the risk benefits of going home and would like to go home today. I discussed with him to monitor his blood sugars and adjust his insulin as necessary as since he is not eating as many calories given his gastroenteritis as he likely used to he may not need the 68 units of glargine at night for the next day or 2. Do recommend he follow-up w ith his PCP in 3 to 5 days, renal function is normal and his hyponatremia resolved. 2. Coronary artery disease status post stent, type 2 diabetes, essential hypertension, hyperlipidemia are chronic medical conditions which complicate his care. His home medications were continued where appropriate Physical Exam Narrative General: Alert, Oriented x3, Cooperative, No apparent distress HEENT: Atraumatic, PERRLA, EOMI, Normocephalic Oral: Moist Mucosa Neck: Supple, No JVD Lungs: Clear to auscultation, Normal air movement, No rhonchi, No wheeze, No rales Cardiovascular: Regular rate, Regular Rhythm, Normal S1, Normal S2, No murmurs Abdomen: Soft, Non Tender, Non-Distended, No Hepato-splenomegaly Extremities: No edema, Capillary Refill Less than 3 Seconds Skin: No rashes, No breakdown Musculoskeletal: No Tenderness to Palpation of Joints or Extremities Neurological: No focal neurological deficits, Motor Exam 5/5 strength throughout, Sensory exam intact to light touch and pain Psych/Mental Status: Normal Affect, Appropriate Weight / BMI Weight Weight: 193 lb 1 oz Body Mass Index (BMI) 28.5 ABG / Lab / Microbiology Data 09/11/23 06:33 09/11/23 06:33 Laboratory: Laboratory Results - last 24 hr 09/10/23 19:53: POC Glucose 148 H 09/11/23 05:09: POC Glucose 110 H 09/11/23 06:33: WBC 7.5, RBC 4.16 L, Hgb 11.2 L, Hct 36.3 L, MCV 87.3, MCH 26.9 L, MCHC 30.9 L, RDW Std Deviation 47.8 H, RDW Coeff of [place] 14.9 H, Plt Count 433, MPV 9.8, Immature Gran % (Auto) 0.500, Neut % (Auto) 75.3 H, Lymph % (Auto) 11.9 L, [place] % (Auto) 8.3, Eos % (Auto) 3.2, Baso % (Auto) 0.8, Absolute Neuts (auto) 5.6, Absolute Lymphs (auto) 0.89, Nucleated RBC % 0, Sodium 138, Potassium 3.9, Chloride 111 H, Carbon Dioxide 19.0 L, Anion Gap 8, BUN 23 H, Creatinine 0.99, Estim Creat Clear Calc 84.75, Est GFR (MDRD) Af Amer 99, Est GFR (MDRD) Non-Af 82, BUN/Creatinine Ratio 23.3 H, Glucose 128 H, Calcium 8.4 L, Total Bilirubin 0.70, AST 18, ALT 37, Alkaline Phosphatase 107, Total Protein 7.0, Albumin 3.0 L, Globulin 4.0, Albumin/Globulin Ratio 0.8 L 09/11/23 11:54: POC Glucose 157 H D/C Instructions Discharge Diet: Low fat / Low cholesterol and Carb Control Diet Call your doctor if you observe: Fever of 101 or Higher, Shortness of breath, Dizziness, Fainting spells, Swelling in the ankles, Chest pain and Increased p alpitations (irregular heartbeat) Meaningful Use Info Meaningful Use Diagnoses (Choose all that apply): None applicable Discharge Plan Admission Admit Date/Time: 09/10/23 17:12 Attending Provider: Larry Coley Primary Care Provider: Bradley Hills Consulting Providers: Brandin Ca Instructions Additional Instructions / Restrictions: Adjust your long-acting insulin at night based on your blood sugars during the day given that you are likely not can to be eating like you normally do given your recent episodes with nausea and vomiting as your blood sugars start to increase slowly return back to your baseline long-acting insulin. Discharge Orders/Prescriptions Prescriptions: Continued clopidogrel 75 MG tablet 75 mg PO DAILY Qty: 30 11RF gabapentin 300 mg capsule 300 mg PO TID oxycodone-acetaminophen [Percocet] 5-325 mg tablet 1 - 2 tab PO Q4H PRN (Reason: pain) insulin glargine 100 UNIT/ML solution 68 unit subcut QHS lisinopril 5 MG tablet 5 mg PO DAILY Patient Comments: blood pressure potassium chloride 10 mEq tablet extended release 20 meq PO DAILY Rx Instructions: TAKE WITH BREAKFAST ondansetron 4 mg tablet,disintegrating 4 mg PO Q8H PRN (Reason: nausea and vomiting) Qty: 10 0RF metformin 500 mg tablet 1,000 mg PO BIDCM Jardiance 25 mg tablet 25 mg PO DAILY atenolol 50 mg tablet 50 mg PO DAILY simvastatin 40 mg tablet 40 mg PO QHS aspirin [Aspirin Childrens] 81 mg tablet,chewable 81 mg PO BID ascorbic acid (vitamin C) 500 mg tablet 1 g PO BID triamcinolone acetonide 0.5 % cream 1 applic topical BID PRN (Reason: RASH/ITCHING) melatonin 10 mg tablet 60 mg PO QHS Patient Comments: PT STATES HE HAS TO GET UP AT 3AM, SO HE HAS TO TAKE MELATONIN TO GET TO SLEEP EARLY Held furosemide 20 mg tablet 20 mg PO BID PRN (Reason: LEG SWELLING) Hold Instructions: Resume on 09/13/23. Referrals / Follow Up: Bradley Hills DO [Primary Care Provider] - Within 1 Week Disposition Disposition (needs filled in before D/C Order can be placed): Home, Self Care Charges/Coding Visit Charges Inpatient E&M: 66353 Disch Hosp >30min
== END 2023-09-11 13:55 | disposition home or self-care (01) | DRG 392 ==
LOC: ED 17:22 → MS3 09-11 07:24
PROVIDERS: Emergency Provider Emergency Medicine; PCP Student in an Organized Health Care Education/Training Program; Visit Provider Family Medicine
DX: K52.9 Noninfective gastroenteritis and colitis, unspecified (principal); E11.9 Type 2 diabetes mellitus without complications; Z79.4 Long term (current) use of insulin; I10 Essential (primary) hypertension; E78.5 Hyperlipidemia, unspecified; I25.10 Atherosclerotic heart disease of native coronary artery without angina pectoris; I25.2 Old myocardial infarction; Z95.5 Presence of coronary angioplasty implant and graft; Z96.652 Presence of left artificial knee joint; Z79.82 Long term (current) use of aspirin; Z79.84 Long term (current) use of oral hypoglycemic drugs; Z79.02 Long term (current) use of antithrombotics/antiplatelets; Z79.899 Other long term (current) drug therapy
CPT/HCPCS: 36415; 80053; 82009; 82803; 82962; 83690; 85025; 96361; 96372; 96374; 96375; 96376; 97802; 99221; 99284; J7030; A4216; G0378; J2405

== ENCOUNTER 2023-10-03 19:45 | Observation (INO) | payer BC, SELFPAY ==
[2016-08-15 14:08] VITALS: BMI 28.9
[2023-10-03 19:46] VITALS: BP 161/86; PULSE 81; RESP 16; TEMP 37.1; O2SAT 98; BMI 28.0
--- NOTE | 2023-10-03 20:14 | EDS_ITS ---
HPI <SARA Álvarez - Last Filed: 10/03/23 22:01> History of Present Illness Chief Complaint: Lower Extremity Injury Narrative Narrative: Patient had a left knee replacement with Dr. Mccoy on August 27. He was feeling well and doing physical therapy twice a week. After doing therapy 3 days ago his right hip started to feel sore. States there was no change in his activity and no trauma. The right hip pain gradually worsened. He is prescribed Percocet for chronic back pain?he typically takes 1 tablet every 8 hours but increased it to 2 tablets every 4-6 hours and is also taking Flexeril prescribed by his PCP without relief. Pain is on the right groin and lateral thigh. It hurts with movement. Today he had more pain with ambulating and was able to walk to the bathroom but his had to lift him off of the toilet. He has no pain radiating down the leg. No weakness, numbness or tingling. [facility] <SARA Álvarez - Last Filed: 10/03/23 22:01> [facility] Medical History (Updated 10/03/23 @ 21:51 by SARA Álvarez) Atherosclerosis of coronary artery of [place] heart without angina pectoris Diabetes Dyslipidemia Hypertension Migraines Non-STEMI (non-ST elevated myocardial infarction) Pancreatitis Home Medications insulin glargine 100 unit/mL subcutaneous solution 68 unit subcut QHS DIABETES 02/11/15 [History Last Taken 10/03/23] lisinopril 5 mg tablet 5 mg PO DAILY BP 02/11/15 [History Last Taken 10/03/23] clopidogrel 75 mg tablet 75 mg PO DAILY #30 tabs 08/20/17 [Rx Last Taken 10/03/23] gabapentin 300 mg capsule 300 mg PO TID 08/20/17 [History Last Taken 10/03/23] oxycodone-acetaminophen 5 mg-325 mg tablet (Percocet) 1 - 2 tab PO Q4H PRN pain 08/20/17 [History Last Taken 10/03/23] furosemide 20 mg tablet 20 mg PO BID PRN LEG SWELLING 05/13/22 [History Last Taken 10/03/23] potassium chloride 10 mEq tablet,extended release 20 meq PO DAILY 05/13/22 [History Last Taken 10/03/23] ascorbic acid (vitamin C) 500 mg tablet 1 g PO BID 09/10/23 [History Last Taken 10/03/23] atenolol 50 mg tablet 50 mg PO DAILY 09/10/23 [History Last Taken 10/03/23] empagliflozin 25 mg tablet (Jardiance) 25 mg PO DAILY DIABETES 09/10/23 [History Last Taken 10/03/23] melatonin 10 mg tablet 60 mg PO QHS SLEEP 09/10/23 [History Last Taken 10/02/23] metformin 500 mg tablet 1,000 mg PO BIDCM DIABETES 09/10/23 [History Last Taken 10/03/23] simvastatin 40 mg tablet 40 mg PO QHS 09/10/23 [History Last Taken 10/03/23] triamcinolone acetonide 0.5 % topical cream 1 applic topical BID PRN RASH/ITCH ING 09/10/23 [History Last Taken 10/03/23] cyclobenzaprine 10 mg tablet 10 mg PO TID 10/03/23 [History Last Taken 10/03/23] Allergy/AdvReac Type Severity Reaction Status Date / Time exenatide [From [place]] AdvReac Other Verified 10/03/23 19:46 Family History Father CAD (coronary artery disease) Mother CAD (coronary artery disease) Surgical History (Updated 09/19/23 @ 00:21 by Alejo Dooley) H/O left knee surgery History of appendectomy History of coronary artery stent placement (~08/15/16) Previous back surgery (~07/25/14) Social History Smoking Status: Never smoker ROS <SARA Álvarez - Last Filed: 10/03/23 22:01> ROS ED ROS Narrative Constitutional: Negative for fever, chills, malaise. Neuro: Negative for motor/sensory dysfunction. Skin: Negative for rash, abscess, or wound. Musc: Positive for right hip pain. No swelling or trauma. EXAM <SARA Álvarez - Last Filed: 10/03/23 22:01> Physical Exam Narrative Exam Narrative: CONST: Patient sitting in no acute distress. EYES: Normal inspection. NECK: Normal inspection. RESP: No respiratory distress, CTAB. CVS: Regular rate and rhythm, no murmur, no gallop. Back: Normal inspection, no midline tenderness. SKIN: Color normal, no rash, warm, dry, intact. EXTREMITIES: Normal appearance of both lower extremities. Tender over right greater trochanter, no swelling or skin changes. No shortening or rotation. Hip range of motion is intact. 5/5 strength in bilateral hip flexion, knee flexion/extension, and DF/PF. Normal sensation, 2+ DP pulses. Left knee incision is healing well. The area is slightly swollen but not tender. There is no erythema or drainage. NEURO: Alert and answering questions appropriately. PSYCH: Normal affect. Const Vital Signs: 10/03/23 19:46 10/03/23 23:00 Temperature 98.8 F Temperature Source Axillary Pulse Rate 81 88 Respiratory Rate 16 16 Blood Pressure 161/86 H 130/72 H Blood Pressure Mean 111 91 Pulse Ox 98 96 Oxygen Delivery Method Room Air Room Air <Dr. Amado Patterson DO - Last Filed: 10/04/23 00:51> Physical Exam Const Vital Signs: 10/03/23 19:46 10/03/23 23:00 Temperature 98.8 F Temperature Source Axillary Pulse Rate 81 88 Respiratory Rate 16 16 Blood Pressure 161/86 H 130/72 H Blood Pressure Mean 111 91 Pulse Ox 98 96 Oxygen Delivery Method Room Air Room Air MDM <SARA Álvarez - Last Filed: 10/03/23 22:01> [facility] Narrative Medical decision making narrative: History gathered from: Patient and spouse Patient has 3 days of atraumatic progressively worsening right hip pain. He is tender over the right groin and lateral trochanter. The lower extremities appear normal. There is no warmth or evidence of cellulitis or septic joint. Range of motion is intact. Neurovascularly intact. Right hip x-ray shows no acute findings. He received IV fentanyl from EMS and was given Toradol here. He still complains of severe pain and was given Dilaudid and Solu-Medrol. With no history of trauma, no signs of infection, and his area of tenderness this is most likely tendinitis. Lab Data Labs: Laboratory Results - last 24 hr 10/03/23 21:54 WBC 6.3 RBC 4.97 Hgb 13.3 Hct 42.8 MCV 86.1 MCH 26.8 L MCHC 31.1 L RDW Std Deviation 44.5 H RDW Coeff of [place] 14.2 Plt Count 237 MPV 10.5 Immature Gran % (Auto) 0.300 Neut % (Auto) 69.7 Lymph % (Auto) 17.0 L [place] % (Auto) 9.7 Eos % (Auto) 2.7 Baso % (Auto) 0.6 Absolute Neuts (auto) 4.4 Absolute Lymphs (auto) 1.07 Nucleated RBC % 0 Sodium 135 L Potassium 4.1 Chloride 103 Carbon Dioxide 22.0 Anion Gap 10 BUN 18 Creatinine 0.94 Estim Creat Clear Calc 88.53 Est GFR (MDRD) Af Amer 104 Est GFR (MDRD) Non-Af 86 BUN/Creatinine Ratio 19.1 Glucose 141 H Calcium 9.2 Radiography Diagnostic Testing: Clinical Impression(s) from Imaging Studies Hip/Pelvis X-Ray 10/03/23 20:35 IMPRESSION: No evidence of displaced pelvic or hip fracture. Electronically Signed: Gerardo Ruiz MD at 21:09 EDT , ED attending interpretation of right hip shows no pelvic or hip fracture. <Dr. Amado Patterson, DO - Last Filed: 10/04/23 00:51> [facility] Narrative Medical decision making narrative: History gathered from: Patient and spouse Patient has 3 days of atraumatic progressively worsening right hip pain. He is tender over the right groin and lateral trochanter. The lower extremities appear normal. There is no warmth or evidence of cellulitis or septic joint. Range of motion is intact. Neurovascularly intact. Right hip x-ray shows no acute findings. He received IV fentanyl from EMS and was given Toradol here. He still complains of severe pain and was given Dilaudid and Solu-Medrol. With no history of trauma, no signs of infection, and his area of tenderness this is most likely tendinitis. I have personally performed a face to face assessment of the patient and have reviewed the HARMEET Note. I performed a substantive portion of the visit including all aspects of the following. My olivier findings include: History is patient is status post left knee replacement. A couple days ago while in physical therapy which has been going quite well for him developed pain in the anterior right hip. States he was not doing any particular hip exercises when it began. He has not had fever or swelling. No skin rashes. Patient is on Plavix. Exam is very focal tenderness over the sartorius intactness tendon insertion region. When I push on this area as compared to other areas he notes that it is very focally tender. I do not appreciate erythema or increased warmth. There is no deformity. Negative logroll. Neurovascular intact distal calf is nontender. Medical Decison Making my interpretation of the plain films of the right hip and pelvis is no acute fracture no acute findings. White count 6.3 BMP with a glucose of 141. Clinically he is point tender over his sartorius/pectineus tendon insertion. I do not see a rash. Notes the distal leg swelling. See bony injury. It is not made worse with hip flexion. I doubt it would be a psoas hematoma. There is no erythema of the skin to suggest infectious cause. Patient received initially Toradol and then Dilaudid and Solu-Medrol. He was de finitive that he cannot stay in the hospital. His felt that he should stay in the hospital. I advised him that there are is no easy fix for a tendinitis that ends up what this is. As he will be admitted for observational stay he may need to go to rehab facility. They understand this. He states that he simply cannot walk or go home and function like this and the states that she canno t care for him. History & Record Review Discussion w/independent historian: Patient and Family Lab Data Attestation: I reviewed the patient's lab results. Labs: Laboratory Results - last 24 hr 10/03/23 21:54 WBC 6.3 RBC 4.97 Hgb 13.3 Hct 42.8 MCV 86.1 MCH 26.8 L MCHC 31.1 L RDW Std Deviation 44.5 H RDW Coeff of [place] 14.2 Plt Count 237 MPV 10.5 Immature Gran % (Auto) 0.300 Neut % (Auto) 69.7 Lymph % (Auto) 17.0 L [place] % (Auto) 9.7 Eos % (Auto) 2.7 Baso % (Auto) 0.6 Absolute Neuts (auto) 4.4 Absolute Lymphs (auto) 1.07 Nucleated RBC % 0 Sodium 135 L Potassium 4.1 Chloride 103 Carbon Dioxide 22.0 Anion Gap 10 BUN 18 Creatinine 0.94 Estim Creat Clear Calc 88.53 Est GFR (MDRD) Af Amer 104 Est GFR (MDRD) Non-Af 86 BUN/Creatinine Ratio 19.1 Glucose 141 H Calcium 9.2 Radiography Diagnostic Testing: Clinical Impression(s) from Imaging Studies Hip/Pelvis X-Ray 10/03/23 20:35 IMPRESSION: No evidence of displaced pelvic or hip fracture. Electronically Signed: Gerardo Ruiz MD at 21:09 EDT , Discharge Plan Triage Chief Complaint: Lower Extremity Injury ED Midlevel Provider: Uzma Brower ED Provider: Amado Patterson Dx/Rx/DC Orders Clinical Impression: Acute pain of right hip Primary Care Provider: Bradley Hills
[2023-10-03] MEDS: Ketorolac 30 MG/ML Syringe IV (20:26)
--- NOTE | 2023-10-03 20:35 | RAD_ITS ---
INDICATION: Right hip pain for 3 days, no known injury EXAMINATION/TECHNIQUE: X-RAY - XR Hip Unilateral with Pelvis when performed; 2-3 Views COMPARISON: No relevant prior comparison study available FINDINGS: PELVIC BONES: No displaced fracture, destructive or sclerotic lesions. Hardware from lower lumbar fusion surgery. Sacroiliac joints are unremarkable. No widening of the pubic symphysis. HIPS: Hip joint spaces well-maintained bilaterally. No acute hip fracture. SOFT TISSUES: No soft tissue swelling or gas. RAD/HIP, UNI W/ Pelvis 2-3 Views IMPRESSION: No evidence of displaced pelvic or hip fracture. Electronically Signed: Gerardo Ruiz MD at 21:09 EDT ,
[2023-10-03] MEDS: MethylPREDNISolone 125 MG/2 ML Vial IV (21:56)
[2023-10-03] MEDS: HYDROmorphone 1 MG/ML Syringe IV (21:56)
[2023-10-03 22:11] LABS: Absolute Lymphocyte Count 1.07 X10^3/uL (0.83-4.51); Absolute Neutrophil Count 4.4 X10^3/uL (2.0-7.7); Basophil# 0.04 X10^3/uL; Basophil% 0.6 % (0-1); Eosinophil# 0.17 X10^3/uL; Eosinophils% 2.7 % (0-5); Hematocrit 42.8 % (40-54); Hemoglobin 13.3 g/dL (13.0-16.5); Lymphocyte # 1.07 X10^3/ul (0.83-4.51); Mean Corp Hgb Conc 31.1 g/dL (32-36); Mean Corpuscular Hgb 26.8 pg (27.0-32.0); Mean Corpuscular Volume 86.1 fL (80-94); Mean Platelet Vol. 10.5 fl (6.2-12.0); Monocyte# 0.61 X10^3/uL; Monocyte% 9.7 % (0-10); NRBC Flagged by Analyzer 0 % (0-5); Neutrophil # 4.37 X10^3/uL (2.7-7.7); Neutrophil % 69.7 % (47-70); Platelet Count 237 K/mm3 (150-450); RBC Distribution Width CV 14.2 % (11.6-14.6); RBC Distribution Width SD 44.5 fl (35.1-43.9); Red Blood Count 4.97 M/mm3 (4.6-6.2); White Blood Count 6.3 K/mm3 (4.4-11.0)
[2023-10-03] MEDS: Ondansetron 4 MG/2 ML Vial IV (22:46)
[2023-10-03 23:00] VITALS: BP 130/72; PULSE 88; RESP 16; O2SAT 96
[2023-10-03 23:05] LABS: Anion Gap 10 (5-15); BUN 18 mg/dL (7-18); BUN/Creat Ratio 19.1 RATIO (10-20); Calcium,Total 9.2 mg/dL (8.5-10.1); Chloride 103 mmol/L (98-107); Creatinine, Serum 0.94 mg/dL (0.70-1.30); EST Glomerular Filtration Rate 86 mL/min (>60); Est Glom Filt Rate - Afr Amer 104 mL/min (>60); Estimated Creatinine Clearance 88.53 ml/min; Glucose 141 mg/dL (74-106); Potassium 4.1 mmol/L (3.5-5.1); Sodium Level 135 mmol/L (136-145)
[2023-10-04] VITALS (7 sets, daily range): BP systolic 107–162; BP diastolic 57–84; PULSE 73–103; RESP 16–18; TEMP 36.6–37.1; O2SAT 94–98; BMI 27.8
--- NOTE | 2023-10-04 00:02 | PCM.HP.STD ---
HPI - General General Date of Admission: 10/04/23 HPI Narrative ARACELY DOMÍNGUEZ, is a 63 M who presents to the hospital with right hip pain. He had a left total knee replacement on August 27 at an outside hospital and states that on Thursday he started having worsening right hip pain. Today he had extreme difficulty ambulating and his had to help him get up from the toilet because of the pain. He denies any trauma, there is no signs of infection leukocytosis is normal, afebrile. He does have point tenderness and is consistent with quadricep tendinitis. [facility] Medical History (Updated 10/03/23 @ 21:51 by SARA Álvarez) Atherosclerosis of coronary artery of [place] without angina pectoris Diabetes Dyslipidemia Hypertension Migraines Non-STEMI (non-ST elevated myocardial infarction) Pancreatitis Home Medications insulin glargine 100 unit/mL subcutaneous solution 68 unit subcut QHS DIABETES 02/11/15 [History Last Taken 10/03/23] lisinopril 5 mg tablet 5 mg PO DAILY BP 02/11/15 [History Last Taken 10/03/23] clopidogrel 75 mg tablet 75 mg PO DAILY #30 tabs 08/20/17 [Rx Last Taken 10/03/23] gabapentin 300 mg capsule 300 mg PO TID 08/20/17 [History Last Taken 10/03/23] oxycodone-acetaminophen 5 mg-325 mg tablet (Percocet) 1 - 2 tab PO Q4H PRN pain 08/20/17 [History Last Taken 10/03/23] furosemide 20 mg tablet 20 mg PO BID PRN LEG SWELLING 05/13/22 [History Last Taken 10/03/23] potassium chloride 10 mEq tablet,extended release 20 meq PO DAILY 05/13/22 [History Last Taken 10/03/23] ascorbic acid (vitamin C) 500 mg tablet 1 g PO BID 09/10/23 [History Last Taken 10/03/23] atenolol 50 mg tablet 50 mg PO DAILY 09/10/23 [History Last Taken 10/03/23] empagliflozin 25 mg tablet (Jardiance) 25 mg PO DAILY DIABETES 09/10/23 [History Last Taken 10/03/23] melatonin 10 mg tablet 60 mg PO QHS SLEEP 09/10/23 [History Last Taken 10/02/23] metformin 500 mg tablet 1,000 mg PO BIDCM DIABETES 09/10/23 [History Last Taken 10/03/23] simvastatin 40 mg tablet 40 mg PO QHS 09/10/23 [History Last Taken 10/03/23] triamcinolone acetonide 0.5 % topical cream 1 applic topical BID PRN RASH/ITCHING 09/10/23 [History Last Taken 10/03/23] cyclobenzaprine 10 mg tablet 10 mg PO TID 10/03/23 [History Last Taken 10/03/23] Allergy/AdvReac Type Severity Reaction Status Date / Time exenatide [From [place]] AdvReac Other Verified 10/03/23 19:46 Family History Father CAD (coronary artery disease) Mother CAD (coronary artery disease) Surgical History (Updated 09/19/23 @ 00:21 by Alejo Dooley) H/O left knee surgery History of appendectomy History of coronary artery stent placement (~08/15/16) Previous back surgery (~07/25/14) Social History Smoking Status: Former smoker ROS Constitutional Constitutional: Denies chills, fatigue, fever(s) or malaise Eyes Eyes: Denies blurry vision ENT HEENT: Denies headache(s) or nasal discharge Cardiovascular Cardiovascular: Denies chest pain, dyspnea on exertion or syncope Respiratory/Chest Respiratory/Chest: Denies cough, shortness of breath at rest or shortness of breath with exertion Gastrointestinal Gastrointestinal: Denies constipation, diarrhea, nausea or vomiting Genitourinary Genitourinary: Denies dysuria Musculoskeletal Musculoskeletal: Reports joint pain Neurologic Neurologic: Denies focal weakness, numbness or tremor(s) Psychiatric Psychiatric: Denies anxiety or depression Vital Signs Vital Signs Vital Signs: 10/03/23 19:46 10/03/23 23:00 Temperature 98.8 F Temperature Source Axillary Pulse Rate 81 88 Respiratory Rate 16 16 Blood Pressure 161/86 H 130/72 H Blood Pressure Mean 111 91 Pulse Ox 98 96 Oxygen Delivery Method Room Air Room Air Weight Weight: 189 lb 9.561 oz Body Mass Index (BMI) 28.0 Physical Exam Narrative General: Alert, Oriented x3, Cooperative, No apparent distress HEENT: Atraumatic, PERRLA, EOMI, Normocephalic Oral: Moist Mucosa Neck: Supple, No JVD Lungs: Clear to auscultation, Normal air movement, No rhonchi, No wheeze, No rales Cardiovascular: Regular rate, Regular Rhythm, Normal S1, Normal S2, No murmurs Abdomen: Soft, Non Tender, Non-Distended, No Hepato-splenomegaly Extremities: No edema, Capillary Refill Less than 3 Seconds Skin: No rashes, No breakdown Musculoskeletal: Right hip tenderness to palpation Neurological: No focal neurological deficits, Motor Exam 5/5 strength throughout, Sensory exam intact to light touch and pain Psych/Mental Status: Normal Affect, Appropriate Results Lab / Micro Data 10/03/23 21:54 10/03/23 21:54 Labs: Laboratory Results - last 24 hr 10/03/23 21:54: WBC 6.3, RBC 4.97, Hgb 13.3, Hct 42.8, MCV 86.1, MCH 26.8 L, MCHC 31.1 L, RDW Std Deviation 44.5 H, RDW Coeff of [place] 14.2, Plt Count 237, MPV 10.5, Immature Gran % (Auto) 0.300, Neut % (Auto) 69.7, Lymph % (Auto) 17.0 L, [place] % (Auto) 9.7, Eos % (Auto) 2.7, Baso % (Auto) 0.6, Absolute Neuts (auto) 4.4, Absolute Lymphs (auto) 1.07, Nucleated RBC % 0, Sodium 135 L, Potassium 4.1, Chloride 103, Carbon Dioxide 22.0, Anion Gap 10, BUN 18, Creatinine 0.94, Estim Creat Clear Calc 88.53, Est GFR (MDRD) Af Amer 104, Est GFR (MDRD) Non-Af 86, BUN/Creatinine Ratio 19.1, Glucose 141 H, Calcium 9.2 Imaging Radiology Impression Hip/Pelvis X-Ray 10/03/23 20:35 IMPRESSION: No evidence of displaced pelvic or hip fracture. Electronically Signed: Gerardo Ruiz MD at 21:09 EDT Reading Location ID and State: [facility] / [place] Tel , Service support , Assessment & Plan Assessment/Plan (1) Acute pain of right hip: PLAN: Plan 1. Acute right hip pain ? Nontraumatic ? Continue with rest, as well as NSAIDs and Flexeril ? PT/OT 2. CAD status post stent/essential HTN/HLD ? Continue with his home blood pressure medications ? Blood pressures currently stable ? We will monitor make adjustments as necessary ? Continue with Plavix ? Continue with simvastatin 3. DM2 ? Continue with his home medications, will hold his metformin ? Sliding scale insulin ? Accu-Cheks ACHS ? Monitor make adjustments as necessary DVT: Ambulation 75 minutes was spent on direct patient care, including documentation as well as chart review and collaboration with colleagues Charges/Coding Visit Charges Inpatient E&M: 43846 Init Hosp L3
[2023-10-04] MEDS: Ketorolac 30 MG/ML Syringe IV (01:57)
[2023-10-04] MEDS: oxyCODONE 5 MG Tablet PO ×2 (01:57→06:40)
[2023-10-04] MEDS: cycloBENZAPRine HCl 10 MG Tablet PO ×3 (04:04→21:37)
[2023-10-04] MEDS: Gabapentin 300 MG Capsule PO (04:04)
[2023-10-04] MEDS: Acetaminophen 500 MG Tablet 1000 MG PO ×3 (04:04→21:21)
[2023-10-04 04:28] LABS: Bedside Glucose 220 mg/dL (74-106)
[2023-10-04] MEDS: Insulin Lispro 100 UNIT/ML INSULN.PEN SC ×4 (06:41→21:37)
[2023-10-04 06:49] LABS: Absolute Lymphocyte Count 0.62 X10^3/uL (0.83-4.51); Absolute Neutrophil Count 5.9 X10^3/uL (2.0-7.7); Basophil# 0.01 X10^3/uL; Basophil% 0.2 % (0-1); Hematocrit 43.3 % (40-54); Hemoglobin 13.8 g/dL (13.0-16.5); Lymphocyte # 0.62 X10^3/ul (0.83-4.51); Lymphocyte % 9.4 % (19-41); Mean Corp Hgb Conc 31.9 g/dL (32-36); Mean Corpuscular Hgb 27.2 pg (27.0-32.0); Mean Corpuscular Volume 85.4 fL (80-94); Mean Platelet Vol. 11.1 fl (6.2-12.0); Monocyte# 0.06 X10^3/uL; Monocyte% 0.9 % (0-10); NRBC Flagged by Analyzer 0 % (0-5); Platelet Count 236 K/mm3 (150-450); RBC Distribution Width CV 14.3 % (11.6-14.6); RBC Distribution Width SD 44.3 fl (35.1-43.9); Red Blood Count 5.07 M/mm3 (4.6-6.2); White Blood Count 6.6 K/mm3 (4.4-11.0)
[2023-10-04 07:06] LABS: Anion Gap 13 (5-15); BUN 33 mg/dL (7-18); Calcium,Total 9.3 mg/dL (8.5-10.1); Chloride 100 mmol/L (98-107); Creatinine, Serum 1.32 mg/dL (0.70-1.30); EST Glomerular Filtration Rate 58 mL/min (>60); Est Glom Filt Rate - Afr Amer 71 mL/min (>60); Estimated Creatinine Clearance 62.85 ml/min; Glucose 257 mg/dL (74-106); Potassium 4.7 mmol/L (3.5-5.1); Sodium Level 132 mmol/L (136-145)
--- NOTE | 2023-10-04 07:08 | PCM.PN.HOSP ---
Reason for Visit Reason for Visit: Diagnoses Pain in right hip (10/04/23) Subjective Subjective Patient since admission with very minimal improvement he notes and pain requesting additional pain medication. He notes pain is far worse with any movement attempt even rolling over in bed. He denies any paresthesias or alteration to urine or bowel patterns. He does report still some pain into the right hip but also down the leg. Patient denies fevers, chills, nausea, emesis, abdominal pain, chest pain or dyspnea. Objective Data Objective Data Vital Signs: Vital Signs Temp Pulse Resp BP Pulse Ox O2 Del Method 97.9 F 88 18 162/75 H 98 Room Air 10/04/23 01:41 10/04/23 01:41 10/04/23 01:41 10/04/23 01:41 10/04/23 01:41 10/04/23 02:00 Oxygen Delivery Method Room Air Weight: 188 lb 4.396 oz Body Mass Index (BMI) 27.8 Intake & Output: Intake and Output for Last 24 Hours 10/02/23 10/03/23 10/04/23 23:59 23:59 23:59 Intake Total 0 / 0 Output Total 600 / 600 Balance 0 / 0 -600 / -600 Lab / Micro Data 10/04/23 06:05 10/04/23 06:05 Labs: Laboratory Results - last 24 hr 10/03/23 21:54: WBC 6.3, RBC 4.97, Hgb 13.3, Hct 42.8, MCV 86.1, MCH 26.8 L, MCHC 31.1 L, RDW Std Deviation 44.5 H, RDW Coeff of [place] 14.2, Plt Count 237, MPV 10.5, Immature Gran % (Auto) 0.300, Neut % (Auto) 69.7, Lymph % (Auto) 17.0 L, [place] % (Auto) 9.7, Eos % (Auto) 2.7, Baso % (Auto) 0.6, Absolute Neuts (auto) 4.4, Absolute Lymphs (auto) 1.07, Nucleated RBC % 0, Sodium 135 L, Potassium 4.1, Chloride 103, Carbon Dioxide 22.0, Anion Gap 10, BUN 18, Creatinine 0.94, Estim Creat Clear Calc 88.53, Est GFR (MDRD) Af Amer 104, Est GFR (MDRD) Non-Af 86, BUN/Creatinine Ratio 19.1, Glucose 141 H, Calcium 9.2 10/04/23 04:07: POC Glucose 220 H 10/04/23 06:05: WBC 6.6, RBC 5.07, Hgb 13.8, Hct 43.3, MCV 85.4, MCH 27.2, MCHC 31.9 L, RDW Std Deviation 44.3 H, RDW Coeff of [place] 14.3, Plt Count 236, MPV 11.1, Immature Gran % (Auto) 0.500, Neut % (Auto) 89.0 H, Lymph % (Auto) 9.4 L, [place] % (Auto) 0.9, Eos % (Auto) 0.0, Baso % (Auto) 0.2, Absolute Neuts (auto) 5.9, Absolute Lymphs (auto) 0.62 L, Nucleated RBC % 0, Sodium 132 L, Potassium 4.7, Chloride 100, Carbon Dioxide 19.0 L, Anion Gap 13, BUN 33 H, Creatinine 1.32 H, Estim Creat Clear Calc 62.85, Est GFR (MDRD) Af Amer 71, Est GFR (MDRD) Non-Af 58 L, BUN/Creatinine Ratio 25.0 H, Glucose 257 H, Calcium 9.3 Radiography Diagnostic Testing: Radiology Impression Hip/Pelvis X-Ray 10/03/23 20:35 IMPRESSION: No evidence of displaced pelvic or hip fracture. Electronically Signed: Gerardo Ruiz MD at 21:09 EDT Reading Location ID and State: [facility] / [place] Tel , Service support , Physical Exam Narrative Physical Examination: General: Awake, alert, oriented x 3 and cooperative, laying on his right side, notes ongoing pain although mildly improved since initial ED arrival, rates currently 7 out of 10 in severity at the right hip. Skin: Normal color, normal turgor, no icterus, no cyanosis except recent left total knee replacement, well-healed. HEENT: AT/NC, EOMI, PERRLA, dry MM. Lungs: CTA bilaterally, moderate effort, mild decrease BL bases, no rales, ronchi or wheezing. Heart: Regular rate and rhythm; no gallop, rub audible. Abdomen: Soft, NTTP, ND, distant normal BS. Extremities: No cyanosis, clubbing, or edema. Neurological: Patient awake, alert, oriented x 3, cognitive function intact; pupils equally reactive to light and accommodation, cranial nerves grossly normal, moving all 4 extremities except limited right lower extremity movement as patient because of pain has to lay on his right side and with any movement pain increases and is more debilitating, more sharp, strength moderately to severely globally decreased. Psychiatric: Affect appears normal, no acute evidence of depressive or anxiety feelings. Assessment & Plan Assessment/Plan (1) Acute pain of right hip: PLAN: Plan The patient is a 63 y/o M w/ PMHx: CKD stage II per GFR trending, HTN, HLD, CAD s/p PCI, Former tobacco use, Chronic back pain s/p surgical intervention, Diabetes mellitus type II who presents to the [facility] ED on 10/04/23 with history of intractable right hip pain with previous history 08/28/2023 left total knee replacement initially doing well with physical therapy however 3 days prior started to have discomfort to the right hip with debility and difficulty walking as a result. #1. Severe right hip pain, debility, suspected possible underlying tendinitis complicated by recent left total knee replacements with debility and recovering status from this: Admitted to medical surgical floor, maintain on fall precautions, initially administered IV steroids in the ED, frequent positioning, will decrease patient IV toradol to low-dose 15 mg with limited course x 5 given CAD on Plavix and mild renal changes as noted with low threshold to stop if renal function further altered in AM, lidocaine patches, continue home muscle relaxant, increase home gabapentin regimen, medrol dose pack, po/IV narcotic pain regimen, anti-emetics, bowel regimen. Given severity of pain to be cautious and history of previous back surgeries will obtain lumbar spine as well as right hip and pelvic CT to assure no missed fracture. Will consult PT and OT for evaluation as well as Case management for discharge planning. #2. Acute Renal Insuffiency on Chronic Kidney Disease Stage II: Admission BUN/Cr 18/0.94, GFR baseline renal function primarily 0.8-1.2, initially 86, 10/04/2023 BUN/creatinine 33/1.32, GFR decreased to 58 #3. CAD: Status post PCI, will continue Plavix, atenolol, lisinopril home regimen. As noted very cautiously using short course of low-dose scheduled Toradol. #4. Hypertension: Continue home regimen including atenolol, Lasix, lisinopril, PRN hydralazine. #5. Hyperlipidemia: We will get an patient on statin therapy. #6. Diabetes mellitus type II: Upon admission oral diabetic regimen was continued, will continue home insulin regimen, ADA diet, monitor for hypoglycemia given usage of steroids as noted, accu checks w/ ISS. #7. Former tobacco use: Encourage continued tobacco cessation. #8. DVT prophylaxis: Lovenox. Charges/Coding Procedures Hospitalists Procedures: Other Procedure - See Report (Billing Code [id number]: Same day evaluation as admission day, no billing ability.)
[2023-10-04] MEDS: Glucerna Shake 120 ML LIQUID PO ×3 (07:41→16:56)
[2023-10-04] MEDS: Potassium Chloride Oral Tablet 20 MEQ PO (07:42)
[2023-10-04] MEDS: Ascorbic Acid 500 MG Tablet 1000 MG PO ×2 (07:42→21:20)
[2023-10-04] MEDS: Atenolol 50 MG Tablet PO (07:42)
[2023-10-04] MEDS: Lisinopril 5 MG Tablet PO (07:42)
[2023-10-04] MEDS: Empagliflozin 25 MG Tablet PO (07:43)
[2023-10-04] MEDS: Clopidogrel Bisulfate 75 MG Tablet PO (07:44)
--- NOTE | 2023-10-04 08:28 | CT_ITS ---
STUDY: CT PELVIS WITHOUT CONTRAST REASON FOR EXAM: Male, 63 years old. R hip pain RADIATION DOSAGE (If Supplied By Facility): CTDIvol = ( 14.07 ) mGy, DLP = ( 509.54 ) mGycm TECHNIQUE: Transaxial imaging of the pelvis was performed without oral contrast, and without intravenous administration of contrast material. Individualized dose optimization techniques were used for this CT. COMPARISON: X-ray 10/03/2023 FINDINGS: Normal urinary bladder. Normal visualized small intestine. Normal visualized colon. There is no pelvic fluid. There is no pelvic mass lesion or lymphadenopathy. Normal visualized pelvic arteries. Normal abdominal wall. Mild joint space narrowing and osteophyte formation both hip joints consistent with mild arthrosis. Status post transpedicular fixation at L5/S1. CT/Pelvis without IV Contrast IMPRESSION: Mild bilateral hip arthrosis. Electronically Signed: Hugh Benites MD at 17:40 EDT ,
--- NOTE | 2023-10-04 08:31 | CT_ITS ---
STUDY: CT LUMBAR SPINE WITHOUT CONTRAST REASON FOR EXAM: Male, 63 years old. Back pain RADIATION DOSAGE (If Supplied By Facility): CTDIvol = ( 13.90 ) mGy, DLP = ( 414.41 ) mGycm TECHNIQUE: The patient was scanned in a multi detector CT scanner. High resolution transaxial imaging was performed. Images were obtained from T12 to S1. Sagittal and coronal images were reconstructed. Individualized dose optimization techniques were used for this CT. COMPARISON: None FINDINGS: Normal lumbar lordosis. There is no substantial scoliosis. Normal vertebrae of the lumbar spine. L1-2: Mild bilateral facet hypertrophy and ligament flavum hypertrophy. Mild broad disc osteophyte complex produces mild spinal stenosis and mild bilateral neural foraminal stenosis. L2-3: Mild broad disc protrusion produces mild spinal stenosis and mild bilateral neural foraminal stenosis. L3-4: Normal endplates. Normal disc height and morphology. Normal bilateral facet joints. Normal central canal and bilateral lateral recesses. Normal bilateral intervertebral neural foramina. L4-5: Mild broad disc protrusion produces mild spinal stenosis and mild bilateral neural foraminal stenosis. L5-S1: Status post transpedicular fixation with 2 mm of anterolisthesis of L5 on S1 and a mild broad disc protrusion which produces mild spinal stenosis and moderate bilateral neural foraminal stenosis. Normal visualized paraspinous soft tissue structures. CT/Spine Lumbar without Contrast IMPRESSION: Postsurgical changes and degenerative disc disease as described above. Electronically Signed: Hugh Benites MD at 17:44 EDT ,
[2023-10-04] MEDS: Lidocaine 5% Patch 2 PATCH TOPICAL (09:12)
[2023-10-04] MEDS: Gabapentin 600 MG Tablet PO ×3 (09:14→21:21)
[2023-10-04] MEDS: 0.9% Saline Lock 10 ML Syringe IV ×2 (09:17→13:27)
[2023-10-04] MEDS: HYDROmorphone 0.5 MG/0.5 ML SYRINGE IV ×3 (09:18→22:50)
[2023-10-04] MEDS: 0.9% Normal Saline (1000mL) 1,000 ML 100 ML IV (10:06)
[2023-10-04 11:39] LABS: Bedside Glucose 268 mg/dL (74-106)
[2023-10-04] MEDS: MethylPREDNISolone DosePak 4 MG BOX PO ×3 (11:53→21:38)
[2023-10-04] MEDS: Ketorolac 15 MG/ML Vial IV ×2 (13:27→21:20)
[2023-10-04] MEDS: Ondansetron 4 MG/2 ML Vial IV ×2 (14:49→22:50)
[2023-10-04 16:36] LABS: Bedside Glucose 278 mg/dL (74-106)
[2023-10-04] MEDS: Atorvastatin Calcium 20 MG Tablet PO (21:21)
[2023-10-04] MEDS: MELATONIN 10 MG TABLET 60 MG PO (21:23)
[2023-10-04] MEDS: Insulin Glargine-YFGN 100 UNIT/ML Pen 68 UNIT SC (21:37)
[2023-10-04 22:29] LABS: Bedside Glucose 290 mg/dL (74-106)
[2023-10-05 02:21] VITALS: BP 118/60; PULSE 66; RESP 16; TEMP 36.6; O2SAT 97
[2023-10-05] MEDS: Ketorolac 15 MG/ML Vial IV (05:27)
[2023-10-05] MEDS: cycloBENZAPRine HCl 10 MG Tablet PO ×2 (05:27→13:37)
[2023-10-05] MEDS: Gabapentin 600 MG Tablet PO ×2 (05:27→13:37)
[2023-10-05] MEDS: Acetaminophen 500 MG Tablet 1000 MG PO ×2 (05:28→13:37)
[2023-10-05] MEDS: Enoxaparin 40 MG/0.4 ML Syringe SC (05:36)
[2023-10-05] MEDS: Insulin Lispro 100 UNIT/ML INSULN.PEN SC ×2 (05:36→12:18)
[2023-10-05 05:56] LABS: Bedside Glucose 203 mg/dL (74-106)
[2023-10-05 07:33] LABS: Absolute Lymphocyte Count 0.97 X10^3/uL (0.83-4.51); Absolute Neutrophil Count 9.5 X10^3/uL (2.0-7.7); Basophil# 0.02 X10^3/uL; Basophil% 0.2 % (0-1); Eosinophil# 0.01 X10^3/uL; Eosinophils% 0.1 % (0-5); Hematocrit 38.9 % (40-54); Hemoglobin 12.8 g/dL (13.0-16.5); Lymphocyte # 0.97 X10^3/ul (0.83-4.51); Lymphocyte % 8.7 % (19-41); Mean Corp Hgb Conc 32.9 g/dL (32-36); Mean Corpuscular Hgb 27.5 pg (27.0-32.0); Mean Corpuscular Volume 83.7 fL (80-94); Mean Platelet Vol. 10.5 fl (6.2-12.0); Monocyte# 0.63 X10^3/uL; Monocyte% 5.7 % (0-10); NRBC Flagged by Analyzer 0 % (0-5); Neutrophil # 9.46 X10^3/uL (2.7-7.7); Neutrophil % 84.9 % (47-70); Platelet Count 234 K/mm3 (150-450); RBC Distribution Width CV 14.4 % (11.6-14.6); RBC Distribution Width SD 44.1 fl (35.1-43.9); Red Blood Count 4.65 M/mm3 (4.6-6.2); White Blood Count 11.1 K/mm3 (4.4-11.0)
[2023-10-05 07:46] LABS: Anion Gap 6 (5-15); BUN 53 mg/dL (7-18); BUN/Creat Ratio 42.4 RATIO (10-20); Calcium,Total 8.5 mg/dL (8.5-10.1); Chloride 105 mmol/L (98-107); Creatinine, Serum 1.25 mg/dL (0.70-1.30); EST Glomerular Filtration Rate 62 mL/min (>60); Est Glom Filt Rate - Afr Amer 75 mL/min (>60); Estimated Creatinine Clearance 66.37 ml/min; Glucose 239 mg/dL (74-106); Potassium 4.5 mmol/L (3.5-5.1); Sodium Level 134 mmol/L (136-145)
[2023-10-05 07:50] VITALS: BP 128/56; PULSE 62; RESP 18; TEMP 36.7; O2SAT 95
[2023-10-05] MEDS: oxyCODONE 5 MG Tablet 10 MG PO ×2 (07:53→12:27)
[2023-10-05] MEDS: Glucerna Shake 120 ML LIQUID PO (07:54)
[2023-10-05] MEDS: MethylPREDNISolone DosePak 4 MG BOX PO (07:55)
[2023-10-05] MEDS: Potassium Chloride Oral Tablet 20 MEQ PO (07:55)
[2023-10-05] MEDS: Atenolol 50 MG Tablet PO (10:07)
[2023-10-05] MEDS: Lisinopril 5 MG Tablet PO (10:07)
[2023-10-05] MEDS: Ascorbic Acid 500 MG Tablet 1000 MG PO (10:07)
[2023-10-05] MEDS: Clopidogrel Bisulfate 75 MG Tablet PO (10:08)
[2023-10-05] MEDS: Empagliflozin 25 MG Tablet PO (10:08)
--- NOTE | 2023-10-05 12:08 | DS.PCM_ITS ---
Providers Date of Admission: 10/04/23 Date of Discharge: 10/05/23 Primary Care Physician: Dr. Bradley Hills DO Reason For Visit: HIP PAIN Diagnosis Discharge Diagnosis (1) Acute pain of right hip: Status: Acute Code(s): M25.551 - Pain in right hip Medications at Discharge Home Medications insulin glargine 100 unit/mL subcutaneous solution 68 unit subcut QHS DIABETES 02/11/15 lisinopril 5 mg tablet 5 mg PO DAILY BP 02/11/15 clopidogrel 75 mg tablet 75 mg PO DAILY #30 tabs 08/20/17 gabapentin 300 mg capsule 300 mg PO TID 08/20/17 oxycodone-acetaminophen 5 mg-325 mg tablet (Percocet) 1 - 2 tab PO Q4H PRN pain 08/20/17 furosemide 20 mg tablet 20 mg PO BID PRN LEG SWELLING 05/13/22 potassium chloride 10 mEq tablet,extended release 20 meq PO DAILY 05/13/22 ascorbic acid (vitamin C) 500 mg tablet 1 g PO BID 09/10/23 atenolol 50 mg tablet 50 mg PO DAILY 09/10/23 empagliflozin 25 mg tablet (Jardiance) 25 mg PO DAILY DIABETES 09/10/23 melatonin 10 mg tablet 60 mg PO QHS SLEEP 09/10/23 metformin 500 mg tablet 1,000 mg PO BIDCM DIABETES 09/10/23 simvastatin 40 mg tablet 40 mg PO QHS 09/10/23 triamcinolone acetonide 0.5 % topical cream 1 applic topical BID PRN RASH/IT KAIDEN 09/10/23 cyclobenzaprine 10 mg tablet 10 mg PO TID 10/03/23 acetaminophen 500 mg tablet 1,000 mg (2 x 500 mg) PO Q8 #0 tabs 10/05/23 lidocaine 5 % topical patch 2 patch topical DAILY #15 ea 10/05/23 meloxicam 15 mg tablet 15 mg PO DAILY #7 tabs 10/05/23 oxycodone 5 mg tablet 5 mg PO Q8H PRN pain 5 days #15 tabs 10/05/23 Hospital Course Operations None Procedures - (Hip and pelvics x-rays/CT pelvis/CT lumbar spine) Summary of Care Provided Minutes Spent on Discharge: 36 Hospital Course: Mr. Leahy is a 63-year-old white male who presented to the emergency department at [facility] on 10/04/2023 with right hip pain. Patient reported he had a total left knee replacement done on August 27 at [facility] and he reported that on Thursday he started having worsening right hip pain. On the day of presentation he had extreme difficulty with ambulating and his had to help him get up from the toilet because of the pain. He reported it was worse with sitting and felt better when he was lying on his side, back, abdomen and actually up walking. He indicated that there was some point tenderness at the time of presentation over the lateral hip area in the region of the greater trochanteric bursa and he was told by the emergency department physician that he either had a tendinitis or bursitis. His vital signs on presentation were unremarkable. His CBC was unremarkable. His chemistry specialist ry panel showed mild hyponatremia with a slightly elevated serum creatinine 1.32 but was otherwise unremarkable. He was admitted to the medical floor and placed on as needed narcotics, lidocaine patch, IV NSAIDs with Toradol, Flexeril, increased gabapentin dosing and steroids. Further imaging of his lumbar spine and hip were performed with CT and were unremarkable for any acute pathology. PT and OT evaluated the patient and he did quite well actually. He was able to walk 40 feet with therapy but did demonstrate gait deviation. He did indicate that he could ambulate farther and did so with a wheeled walker. He reported on the day of discharge she walked even better than the day previous and felt that his pain was much better. He is convinced that it is likely related to his abnormal gait pattern and weakness related to his previous knee surgery and would like to be able to be discharged and follow-up with outpatient physical therapy. He indicated he had a appointment to be seen at [facility] physical therapy clinic on 10/05/2019 4 in the evening at 5 PM and was anxious to be able to make that. Since he was doing so much better we felt comfortable discharging him home. I did send him with a week of as needed oxycodone every 8 hours, meloxicam 15 mg daily x 7 days, lidocaine patch, and instructed him to take Tylenol 1000 mg every 8 hours scheduled for no longer than 14 days. I have asked him to continue his physical and Occupational Therapy and make sure that he discusses his current issues with him. He was able to be discharged in stable condition on 10/05/2023. I advised outpatient follow-up with his primary care physician within the next week. Discharge diagnoses: Acute right hip pain--> suspect bursitis versus tendinitis Right knee osteoarthritis status post total knee arthroplasty DM-2 Hypertension CAD Hyperlipidemia History of pancreatitis History of migraines Physical Exam Const alert, oriented x3, no apparent distress, no limitations, healthy appearing and well nourished; Negative for average body habitus Constitutional Narrative: Overweight, middle-aged, white male, lying in right side-lying in bed, appears comfortable nontoxic, eating lunch General Appearance: cooperative, comfortable, well kempt and well developed Orientation / Consciousness: awake, oriented to person, oriented to place and oriented to time Exam Limitations: no limitations Nutritional Appearance: overweight HEENT normocephalic, head/scalp atraumatic, hearing grossly normal bilaterally and moist oral mucous membranes HEENT Narrative: Dentition is good, Mallampati is 3, no thrush Eyes PERRL, EOMs intact bilaterally and conjunctivae normal Eyes Narrative: No scleral icterus Neck no lymphadenopathy and supple Neck Narrative: Trachea midline, no thyroid enlargement Resp normal respiratory effort, no retractions, no use of accessory muscles and clear to auscultation bilaterally Auscultation: Negative for rales, rhonchi or wheezes Cardio regular rate, regular rhythm, S1 normal heart sound, S2 normal heart sound, no murmurs, no rub, no gallops and no clicks GI normal to inspection, nondistended, normoactive bowel sounds, soft to palpation and non-tender Extremity no clubbing, cyanosis or edema Extremity Narrative: Pedal pulses are 2+ Skin no rashes or lesions noted, no wounds, skin turgor normal and no jaundice Skin Narrative: Well-healing postoperative incision on right knee Neuro oriented x3, moves all extremities and no focal motor deficits Speech: speech normal Psych affect normal Psych Narrative: Eye contact is good, patient interacts appropriately Weight / BMI Weight Weight: 85.4 kg Body Mass Index (BMI) 27.8 ABG / Lab / Microbiology Data 10/05/23 07:25 10/05/23 07:25 Laboratory: Laboratory Results - last 24 hr 10/04/23 16:17: POC Glucose 278 H 10/04/23 21:32: POC Glucose 290 H 10/05/23 05:33: POC Glucose 203 H 10/05/23 07:25: WBC 11.1 H, RBC 4.65, Hgb 12.8 L, Hct 38.9 L, MCV 83.7, MCH 27.5, MCHC 32.9, RDW Std Deviation 44.1 H, RDW Coeff of [place] 14.4, Plt Count 234, MPV 10.5, Immature Gran % (Auto) 0.400, Neut % (Auto) 84.9 H, Lymph % (Auto) 8.7 L, [place] % (Auto) 5.7, Eos % (Auto) 0.1, Baso % (Auto) 0.2, Absolute Neuts (auto) 9.5 H, Absolute Lymphs (auto) 0.97, Nucleated RBC % 0, Sodium 134 L, Potassium 4.5, Chloride 105, Carbon Dioxide 23.0, Anion Gap 6, BUN 53 H, Creatinine 1.25, Estim Creat Clear Calc 66.37, Est GFR (MDRD) Af Amer 75, Est GFR (MDRD) Non-Af 62, BUN/Creatinine Ratio 42.4 H, Glucose 239 H, Calcium 8.5 Radiography Diagnostic Testing: Radiology Impression Pelvis CT 10/04/23 08:28 IMPRESSION: Mild bilateral hip arthrosis. Electronically Signed: Hugh Benites MD at 17:40 EDT Reading Location ID and State: [id number] / [employer] , Service support , Lumbar Spine CT 10/04/23 08:31 IMPRESSION: Postsurgical changes and degenerative disc disease as described above. Electronically Signed: Hugh Benites MD at 17:44 EDT , D/C Instructions Discharge Diet: Low fat / Low cholesterol and 1800 Calorie Control Diet Discharge Activity: Return to Normal Activity and - (Use assistive device as needed) Meaningful Use Info Meaningful Use Meaningful Use Diagnoses (Choose all that apply): None applicable Ischemic Stroke Statin Dosing Therapy Reference: STATIN DOSE THERAPY REFERENCE: * Patients > 75 years receive moderate or high dose statin therapy. * Patients 75 years or YOUNGER should receive HIGH intensity statin dose unless contraindicated. You will be required to document reason for non-treatment if statin daily dose does not meet guidelines. HIGH DOSE STATIN THERAPY DAILY Atorvastatin > than or = to 40 mg Rosuvastatin > than or = to 20 mg Amlodipine + Atorvastatin > than or = to 2.5/40 mg Ezetimibe + Simvastatin 10/80 mg Simvastatin 80mg Discharge Plan Admission Admit Date/Time: 10/04/23 00:22 Primary Reason for Your Visit: Intractable right hip pain Attending Provider: Kristen Ruiz Primary Care Provider: Bradley Hills Consulting Providers: Larry Coley; Shwetha Mast Instructions Additional Instructions / Restrictions: 1. Please continue physical therapy as previously prescribed 2. If your hip pain persist without resolution and physical therapy and the below medications please refer back to your orthopedic surgeon Discharge Orders/Prescriptions Prescriptions: New lidocaine 5 % Adhesive Patch,Medicated 2 patch topical DAILY Qty: 15 0RF Protocol: *Topical Application Instructions APPLICATION INSTRUCTIONS: Hip acetaminophen 500 mg Tablet 1,000 mg PO Q8 Qty: 0 0RF Rx Instructions: Take as such for no longer than 14 days meloxicam 15 mg tablet 15 mg PO DAILY Qty: 7 0RF oxycodone 5 mg tablet 5 mg PO Q8H PRN (Reason: pain) 5 Days Qty: 15 0RF Continued clopidogrel 75 MG tablet 75 mg PO DAILY Qty: 30 11RF gabapentin 300 mg capsule 300 mg PO TID oxycodone-acetaminophen [Percocet] 5-325 mg tablet 1 - 2 tab PO Q4H PRN (Reason: pain) insulin glargine 100 UNIT/ML solution 68 unit subcut QHS lisinopril 5 MG tablet 5 mg PO DAILY Patient Comments: blood pressure potassium chloride 10 mEq tablet extended release 20 meq PO DAILY Rx Instructions: TAKE WITH BREAKFAST furosemide 20 mg tablet 20 mg PO BID PRN (Reason: LEG SWELLING) Hold Instructions: Resume on 09/13/23. cyclobenzaprine 10 mg tablet 10 mg PO TID metformin 500 mg tablet 1,000 mg PO BIDCM Jardiance 25 mg tablet 25 mg PO DAILY atenolol 50 mg tablet 50 mg PO DAILY simvastatin 40 mg tablet 40 mg PO QHS ascorbic acid (vitamin C) 500 mg tablet 1 g PO BID triamcinolone acetonide 0.5 % cream 1 applic topical BID PRN (Reason: RASH/ITCHING) melatonin 10 mg tablet 60 mg PO QHS Patient Comments: PT STATES HE HAS TO GET UP AT 3AM, SO HE HAS TO TAKE MELATONIN TO GET TO SLEEP EARLY Referrals / Follow Up: Bradley Hills DO [Primary Care Provider] - Within 1 Week Disposition Disposition (needs filled in before D/C Order can be placed): Home, Self Care Charges/Coding Visit Charges Inpatient E&M: 98928 Disch Hosp >30min
--- NOTE | 2023-10-05 12:10 | CASEMGMT ---
PRATIBHA CM into pt room, pt lying in bed in no distress, pt. has outpatient therapy already set up. Initially set up after HH completed, pt does not need a new prescription for this. Pt. has walker at home and denies further home going needs.
[2023-10-05] MEDS: Lidocaine 5% Patch 2 PATCH TOPICAL (12:17)
[2023-10-05 13:29] VITALS: BP 132/64; PULSE 66; RESP 18; TEMP 36.8; O2SAT 97
--- NOTE | 2023-10-05 14:22 | PHA.DC_ITS ---
Pharmacy [place] Med Reconciliation Pharmacy Service has performed discharge medication reconciliation for this patient. Medication education papers prepared, patient discharged before I was able to preparole counseling aide. The patient's discharge medication list was reviewed for discrepancies and discrepancies were resolved. Medications at Discharge Home Medications insulin glargine 100 unit/mL subcutaneous solution 68 unit subcut QHS DIABETES 02/11/15 lisinopril 5 mg tablet 5 mg PO DAILY BP 02/11/15 clopidogrel 75 mg tablet 75 mg PO DAILY #30 tabs 08/20/17 gabapentin 300 mg capsule 300 mg PO TID 08/20/17 oxycodone-acetaminophen 5 mg-325 mg tablet (Percocet) 1 - 2 tab PO Q4H PRN pain 08/20/17 furosemide 20 mg tablet 20 mg PO BID PRN LEG SWELLING 05/13/22 potassium chloride 10 mEq tablet,extended release 20 meq PO DAILY 05/13/22 ascorbic acid (vitamin C) 500 mg tablet 1 g PO BID 09/10/23 atenolol 50 mg tablet 50 mg PO DAILY 09/10/23 empagliflozin 25 mg tablet (Jardiance) 25 mg PO DAILY DIABETES 09/10/23 melatonin 10 mg tablet 60 mg PO QHS SLEEP 09/10/23 metformin 500 mg tablet 1,000 mg PO BIDCM DIABETES 09/10/23 simvastatin 40 mg tablet 40 mg PO QHS 09/10/23 triamcinolone acetonide 0.5 % topical cream 1 applic topical BID PRN RASH/ITCHING 09/10/23 cyclobenzaprine 10 mg tablet 10 mg PO TID 10/03/23 acetaminophen 500 mg tablet 1,000 mg (2 x 500 mg) PO Q8 #0 tabs 10/05/23 lidocaine 5 % topical patch 2 patch topical DAILY #15 ea 10/05/23 meloxicam 15 mg tablet 15 mg PO DAILY #7 tabs 10/05/23 oxycodone 5 mg tablet 5 mg PO Q8H PRN pain 5 days #15 tabs 10/05/23
[2023-10-05 20:19] LABS: Bedside Glucose 383 mg/dL (74-106)
[2023-10-05 20:19] LABS: Bedside Glucose 400 mg/dL (74-106)
== END 2023-10-05 14:21 | disposition home or self-care (01) ==
LOC: ED 21:34 → MS3 10-04 00:40
PROVIDERS: Family Medicine; Physician Assistant; Admitting Provider Family Medicine; Emergency Provider Emergency Medicine; PCP Student in an Organized Health Care Education/Training Program; Visit Provider Internal Medicine
DX: M25.551 Pain in right hip (principal); Z79.4 Long term (current) use of insulin; E11.22 Type 2 diabetes mellitus with diabetic chronic kidney disease; M17.11 Unilateral primary osteoarthritis, right knee; Z79.02 Long term (current) use of antithrombotics/antiplatelets; I25.10 Atherosclerotic heart disease of native coronary artery without angina pectoris; Z79.84 Long term (current) use of oral hypoglycemic drugs; I12.9 Hypertensive chronic kidney disease with stage 1 through stage 4 chronic kidney disease, or unspecified chronic kidney disease; Z87.891 Personal history of nicotine dependence; R26.9 Unspecified abnormalities of gait and mobility; R53.81 Other malaise; E78.5 Hyperlipidemia, unspecified; E87.1 Hypo-osmolality and hyponatremia; Z79.899 Other long term (current) drug therapy; N18.2 Chronic kidney disease, stage 2 (mild)
CPT/HCPCS: 36415; 72131; 72192; 73502; 80048; 82962; 85025; 96361; 96372; 96374; 96375; 96376; 97162; 97166; 97802; 99221; 99283; J7030; A4216; G0378; J2405